=== PATIENT | female | born 1960 | race Caucasian/White ===

== ENCOUNTER 2023-10-14 09:05 | Outpatient (OUT) | payer MEDICARE, SELFPAY ==
--- OUTSIDE RECORDS SUMMARY | 2023-10-14 09:25 | XMS_ITS | CCD ---
Author Organization [facility] Care Team Providers Care Seed Laboratory Technician Name Role Phone KRISTA, DEEPAK Unavailable Unavailable KRISTA, DEEPAK Unavailable Unavailable STIERWALT, JACQUELINE Unavailable Unavailable KRISTA, DEEPAK Unavailable Unavailable KRISTA, DEEPAK Unavailable Unavailable KRISTA, DEEPAK Unavailable Unavailable STIERWALT, JACQUELINE Unavailable Unavailable STIERWALT, JACQUELINE Unavailable Unavailable SELF, REFERRED Unavailable Unavailable SELF, REFERRED Unavailable Unavailable KRISTA, DEEPAK Unavailable Unavailable KRISTA, DEEPAK Unavailable Unavailable Galdamez, Radha Unavailable ALBA, DR JUSTIN Colunga Admitting Unavailable NADERER, DR JUSTIN Colunga Attending Unavailable NADERER, DR JUSTIN Colunga Primary Care Unavailable NADERER, DR JUSTIN Colunga Consulting Unavailable NADERER, DR JUSTIN Colunga Admitting Unavailable NADERER, DR JUSTIN Colunga Attending Unavailable NADERER, DR JUSTIN Colunga Primary Care Unavailable NADERER, DR JUSTIN Colunga Consulting Unavailable NADERER, JUSTIN Attending Unavailable Allergies Allergy Classification Reported Allergen(s) Allergy Type Date of Onset Reaction(s) Facility (2 sources) codeine Drug Allergy 04-24-2016 [facility] Repository (2 sources) traMADol Drug Allergy 04-24-2016 [facility]OF [facility] Repository (1 source) Codeine Drug Allergy vomiting [facility] Other (1 source) traMADol Drug Allergy vomiting [facility] Other Medications Current Medications Medication Drug Class(es) Dates Sig (Normalized) Sig (Original) latanoprost (1 source) Prostaglandin Analog Latanoprost Active Problems Active Problems Problem Classification Problem Date Documented Date Episodic/Chronic Gout and other crystal arthropathies (1 source) Other chondrocalcinosis, left knee; Translations: [OTHER CHONDROCALCINOSIS, LEFT KNEE] Onset: 08-13-2016 Chronic Immunizations and screening for infectious disease (1 source) Encounter for screening for human papillomavirus (HPV); Translations: [ENC SCREENING HUMAN PAPILLOMAVIRUS] Onset: 12-05-2021 Episodic Osteoarthritis (1 source) Unilateral primary osteoarthritis, left knee; Translations: [UNILATERAL PRIMARY OSTEOARTHRITIS, LEFT KNEE] Onset: 04-03-2017 Chronic Other screening for suspected conditions (not mental disorders or infectious disease) (4 sources) Encounter for screening for malignant neoplasm of cervix; Translations: [ENC SCREENING MALIG NEOPLASM CERV] Onset: 12-03-2021 Episodic Unclassified (2 sources) Unknown / UNK(Unknown) Onset: 08-13-2016 Unclassified (1 source) Contact with and (suspected) exposure to covid-19; Translations: [Contact with and (suspected) exposure to covid-19] Past or Other Problems Problem Classification Problem Date Documented Da te Episodic/Chronic Fracture of lower limb (9 sources) Displaced fracture of left tibial spine, subsequent encounter for closed fracture with routine healing; Translations: [Displaced fracture of lateral condyle of left tibia, initial encounter for closed fracture] Onset: 08-13-2016 Episodic Other ear and sense organ disorders (1 source) Impacted cerumen, bilateral Onset: 10-18-2021 Resolved: 10-18-2021 Episodic Other upper respiratory infections (1 source) Acute upper respiratory infection, unspecified Onset: 10-18-2021 Resolved: 10-18-2021 Episodic Unclassified (1 source) Contact with and (suspected) exposure to covid-19 Z20.822 Onset: 10-18-2021 Resolved: 10-18-2021 Results Test Name Value Interpretation Reference Range Facility PAP ACOG PANEL 2: 30 to 65on 12-10-2021 . . [facility] Comment on above: Result Comment: Perf ormed at: WB Performed By: #### [id number] #### [facility] [address] [address] [address] Doc Mcgrath Age Gdln ACOG Testing 30-65 [facility] Comment on above: Performed By: #### [id number] #### [facility] [address] [address] [address] Doc Mcgrath DIAGNOSIS: Comment [facility] Comment on above: Result Comment: NEGA TIVE FOR INTRAEPITHELIAL LESION OR MALIGNANCY. CELLULAR CHANGES ASSOCIATED WITH ATROPHY ARE PRESENT. Performed at: WB Performed By: #### [id number] #### [facility] [address] [place] [address] Dr. Doc Mcgrath HPV Aptima Negative Normal Negative [facility] Comment on above: Result Comment: This nucleic acid amplification test detects fourteen high-risk HPV types (16,18,31,33,35,39,45,51,52,56,58,59,66,68) without differentiation. Performed at: =G Performed By: #### [id number] #### [facility] [address] [place] [address] Dr. Doc Mcgrath Methodology: Comment Normal [facility] Comment on above: Result Comment: This liquid based ThinPrep(R) pap test was screened with the use of an image guided system. Performed at: WB Performed By: #### [id number] #### [facility] [address] [place] [address] Dr. Doc Mcgrath Note: Comment Normal [facility] Comment on above: Result Comment: The Pap smear is a screening test designed to aid in the detection of premalignant and malignant conditions of the uterine cervix. It is not a diagnostic procedure and should not be used as the sole means of detecting cervical cancer. Both false-positive and false-negative reports do occur. . Performed at: WB Performed By: #### [id number] #### [facility] [address] [place] [address] Dr. Doc Mcgrath Performed by: Comment Normal [facility] Comment on above: Result Comment: Almita Albert, Wood Engraver (ASCP) Performed at: WB Performed By: #### [id number] #### [facility] [address] [place] [address] Dr. Doc Mcgrath Specimen adequacy: Comment Normal [facility] Comment on above: Result Comment: Sati sfactory for evaluation. Endocervical and/or squamous metaplastic cells (endocervical component) are present. Performed at: WB Performed By: #### [id number] #### [facility] [address] [place] [address] Dr. Doc Mcgrath CBC AUTO DIFFon 11-06-2021 BASO # 0.1 103/ul Normal 0.0-0.[address] [facility] Comment on above: Performed By: #### C BC #### [facility] [address] [place] [address] Dr. Doc Mcgrath Basophils/100 WBC (Bld) 1.0 % Normal 0.2-2.[address] [facility] Comment on above: Performed By: #### C BC #### [facility] [address] [place] [address] Dr. Doc Mcgrath EO # 0.2 103/ul Normal 0.0-0.[address] [facility] Comment on above: Performed By: #### C BC #### [facility] [address] [place] [address] Dr. Doc Mcgrath Eosinophils/100 WBC (Bld) 4.4 % Normal 0.9-7.[address] [facility] Comment on above: Performed By: #### C BC #### [facility] [address] [place] [address] Dr. Doc Mcgrath Erythrocyte distribution width (RBC) [Ratio] 13.1 % Normal 11.0-15.[address] [facility] Comment on above: Performed By: #### C BC #### [facility] [address] [place] [address] Dr. Doc Mcgrath Hematocrit (Bld) [Volume fraction] 44.5 % Normal 36.0-48.[address] [facility] Comment on above: Performed By: #### C BC #### [facility] [address] [place] [address] Dr. Doc Mcgrath Hemoglobin (Bld) [Mass/Vol] 14.3 g/dL Normal 12.0-16.[address] [facility] Comment on above: Performed By: #### C BC #### [facility] [address] [place] [address] Dr. Doc Mcgrath IG # 0.02 10e3/ul Normal 0.00-0.[address] [facility] Comment on above: Performed By: #### C BC #### [facility] [address] [place] [address] Dr. Doc Mcgrath IG % 0.4 % Normal 0.0-0.[address] [facility] Comment on above: Performed By: #### C BC #### [facility] [address] [place] [address] Dr. Doc Mcgrath LYMPH # 1.6 103/ul Normal 1.2-3.[address] [facility] Comment on above: Performed By: #### C BC #### [facility] [address] [place] [address] Dr. Doc Mcgrath Lymphocytes/100 WBC (Bld) 30.5 % Normal 20.5-60.[address] [facility] Comment on above: Performed By: #### C BC #### [facility] [address] [place] [address] Dr. Doc Mcgrath MANUAL DIFF REQ NO Normal [facility] Comment on above: Performed By: #### C BC #### [facility] [address] [place] [address] Dr. Doc Mcgrath MCH (RBC) [Entitic mass] 29.8 pg Normal 26.7-34.[address] [facility] Comment on above: Performed By: #### C BC #### [facility] [address] [place] [address] Dr. Doc Mcgrath MCHC (RBC) [Mass/Vol] 32.1 g/dL Normal 29.9-35.[address] [facility] Comment on above: Performed By: #### C BC #### [facility] [address] [place] [address] Dr. Doc Mcgrath MCV (RBC) [Entitic vol] 92.7 fL Normal 81.0-99.[address] [facility] Comment on above: Performed By: #### C BC #### [facility] [address] [place] [address] Dr. Doc Mcgrath MONO # 0.5 103/ul Normal 0.3-0.[address] [facility] Comment on above: Performed By: #### C BC #### [facility] [address] [place] [address] Dr. Doc Mcgrath Monocytes/100 WBC (Bld) 8.6 % Normal 1.7-12.[address] [facility] Comment on above: Performed By: #### C BC #### [facility] [address] [address] [address] Doc Mcgrath NEUT # 2.9 103/ul Normal 1.4-6.[address] [facility] Comment on above: Performed By: #### C BC #### [facility] [address] [address] [address] Doc Mcgrath Neutrophils/100 WBC (Bld) 55.1 % Normal 43.0-75.[address] [facility] Comment on above: Performed By: #### C BC #### [facility] [address] [place] [address] Dr. Doc Mcgrath Platelet mean volume (Bld) [Entitic vol] 10.1 fL Normal 9.5-13.[address] [facility] Comment on above: Performed By: #### C BC #### [facility] [address] [place] [address] Dr. Doc Mcgrath PLT 306 103/ul Normal 150-450 [facility] Comment on above: Performed By: #### C BC #### [facility] [address] [place] [address] Dr. Doc Mcgrath RBC 4.80 106/ul Normal 4.20-5.[address] [facility] Comment on above: Performed By: #### C BC #### [facility] [address] [place] [address] Dr. Doc Mcgrath WBC 5.3 103/ul Normal 4.0-11.[address] [facility] Comment on above: Performed By: #### C BC #### [facility] [address] [place] [address] Dr. Doc Mcgrath GLYCOHEMOGLOBIN A1Con 2021 ADA RECOMMENDATION SEE BELOW Normal [facility] Comment on above: Result Comment: ADA RECOMMENDED LIMIT 4.0 - 6.0 ADA THERAPEUTIC TARGET < 7.0 ACTION SUGGESTED > 7.0 Performed By: #### A 1C #### [facility] [address] [place] [address] Dr. Doc Mcgrath Glucose [Mass/Vol] 103 mg/dL Normal [facility] Comment on above: Performed By: #### A 1C #### [facility] [address] [address] [address] Doc Mcgrath HbA1c (Bld) [Mass fraction] 5.2 % Normal 4.5-6.[address] [facility] Comment on above: Performed By: #### A 1C #### [facility] [address] [address] [address] Doc Mcgrath LIPID PROFILEon 11-06-2021 CHOL-HDL RATIO NORM SEE BELOW Normal [facility] Comment on above: Result Comment: 3.3 - 4.4 LOW RISK 4.4 - 7.1 AVERAGE RISK 7.1 - 11.0 MODERATE RISK >11.0 HIGH RISK Performed By: #### T SH, BMP, LIPID, LIVER #### [facility] [address] [address] [address] Doc Mcgrath Cholesterol [Mass/Vol] 220 mg/dL Critically high <=[address] [facility] Comment on above: Performed By: #### T SH, BMP, LIPID, LIVER #### [facility] [address] [address] [address] Doc Mcgrath Cholesterol in HDL [Mass/Vol] 42 mg/dL Normal 40-[address] [facility] Comment on above: Performed By: #### T SH, BMP, LIPID, LIVER #### [facility] [address] [address] [address] Doc Mcgrath Cholesterol in LDL [Mass/Vol] 159.2 mg/dL Normal [facility] Comment on above: Performed By: #### T SH, BMP, LIPID, LIVER #### [facility] [address] [address] [address] Doc Mcgrath Cholesterol.total/C holesterol in HDL [Mass ratio] 5.2 {ratio} Normal [facility] Comment on above: Performed By: #### T SH, BMP, LIPID, LIVER #### [facility] [address] [address] [address] Doc Mcgrath HDL NORMAL > or = 60 mg/dl - LO W CARDIOVASCULAR RISK <40 mg/dl - HIGH CARDIOVASCULAR RISK Normal [facility] Comment on above: Performed By: #### T SH, BMP, LIPID, LIVER #### [facility] [address] [address] [address] Doc Mcgrath LDL CALC NORMAL SEE BELOW Normal [facility] Comment on above: Result Comment: <100 mg/dl OPTIMAL 100 - 129 mg/dl NEAR OR ABOVE OPTIMAL 130 - 159 mg/dl BORDERLINE HIGH 160 - 189 mg/dl HIGH >190 mg/dl VERY HIGH Performed By: #### T SH, BMP, LIPID, LIVER #### [facility] [address] [address] [address] Doc Mcgrath Triglyceride [Mass/Vol] 94 mg/dL Normal <=[address] [facility] Comment on above: Performed By: #### T SH, BMP, LIPID, LIVER #### [facility] [address] [place] [address] Dr. Doc Mcgrath VLDL CALC 18.8 mg/dL Normal [facility] Comment on above: Performed By: #### T SH, BMP, LIPID, LIVER #### [facility] [address] [place] [address] Dr. Doc Mcgrath LIVER PROFILEon 11-06-2021 Albumin [Mass/Vol] 4.1 g/dL Normal 3.4-5.0 [facility] Comment on above: Performed By: #### T SH, BMP, LIPID, LIVER #### [facility] [address] [place] [address] Dr. Doc Mcgrath Albumin/Globulin [Mass ratio] 1.1 {ratio} Normal [facility] Comment on above: Performed By: #### T SH, BMP, LIPID, LIVER #### [facility] [address] [place] [address] Dr. Doc Mcgrath ALP [Catalytic activity/Vol] 83 U/L Normal 46-116 [facility] Comment on above: Performed By: #### T SH, BMP, LIPID, LIVER #### [facility] [address] [place] [address] Dr. Doc Mcgrath ALT [Catalytic activity/Vol] 20 U/L Normal 14-[address] [facility] Comment on above: Performed By: #### T SH, BMP, LIPID, LIVER #### [facility] [address] [address] [address] Doc Mcgrath AST [Catalytic activity/Vol] 20 U/L Normal 15-[address] [facility] Comment on above: Performed By: #### T SH, BMP, LIPID, LIVER #### [facility] [address] [place] [address] Dr. Doc Mcgrath BILI, CONJUGATED 0.2 mg/dL Normal 0.0-0.2 [facility] [place] Comment on above: Performed By: #### T SH, BMP, LIPID, LIVER #### [facility] [address] [place] [address] Dr. Doc Mcgrath Bilirubin [Mass/Vol] 1.0 mg/dL Normal 0.2-1.[address] [facility] Comment on above: Performed By: #### T SH, BMP, LIPID, LIVER #### [facility] [address] [place] [address] Dr. Doc Mcgrath Globulin (S) [Mass/Vol] 3.8 g/dL Normal [facility] Comment on above: Performed By: #### T SH, BMP, LIPID, LIVER #### [facility] [address] [place] [address] Dr. Doc Mcgrath Protein [Mass/Vol] 7.9 g/dL Normal 6.4-8.2 [facility] Comment on above: Performed By: #### T SH, BMP, LIPID, LIVER #### [facility] [address] [place] [address] Dr. Doc Mcgrath PROF CHEM 8 (BAS METB)on Anion gap [Moles/Vol] 10.7 mmol/L Normal [facility] Comment on above: Performed By: #### T SH, BMP, LIPID, LIVER #### [facility] [address] [place] [address] Dr. Doc Mcgrath Calcium [Mass/Vol] 9.7 mg/dL Normal 8.5-10.1 [facility] Comment on above: Performed By: #### T SH, BMP, LIPID, LIVER #### [facility] [address] [place] [address] Dr. Doc Mcgrath Chloride [Moles/Vol] 103 mmol/L Normal 98-107 [facility] Comment on above: Performed By: #### T SH, BMP, LIPID, LIVER #### [facility] [address] [address] [address] Doc Mcgrath CO2 [Moles/Vol] 30.8 mmol/L Normal 21.0-32.0 [facility] Comment on above: Performed By: #### T SH, BMP, LIPID, LIVER #### [facility] [address] [address] [address] Doc Mcgrath Creatinine [Mass/Vol] 0.68 mg/dL Normal 0.55-1.[address] [facility] Comment on above: Performed By: #### T SH, BMP, LIPID, LIVER #### [facility] [address] [address] [address] Doc Mcgrath EGFR-AF TAIWANESE >60 Normal >=60 [facility] Comment on above: Performed By: #### T SH, BMP, LIPID, LIVER #### [facility] [address] [address] [address] Doc Mcgrath EGFR-NON AF TAIWANESE >60 Normal >=[address] [facility] Comment on above: Performed By: #### T SH, BMP, LIPID, LIVER #### [facility] [address] [address] [address] Doc Mcgrath Glucose [Mass/Vol] 91 mg/dL Normal 74-106 [facility] Comment on above: Performed By: #### T SH, BMP, LIPID, LIVER #### [facility] [address] [address] [address] Doc Mcgrath Potassium [Moles/Vol] 4.5 mmol/L Normal 3.5-5.1 [facility] Comment on above: Performed By: #### T SH, BMP, LIPID, LIVER #### [facility] [address] [address] [address] Doc Mcgrath Sodium [Moles/Vol] 140 mmol/L Normal 136-145 [facility] Comment on above: Performed By: #### T SH, BMP, LIPID, LIVER #### [facility] [address] [place], [place] [address] Dr. Doc Mcgrath Urea nitrogen [Mass/Vol] 19.0 mg/dL Critically high 7.0-18.[address] [facility] Comment on above: Performed By: #### T SH, BMP, LIPID, LIVER #### [facility] [address] [place], [place] [address] Dr. Doc Mcgrath Urea nitrogen/Creatinine [Mass ratio] 27.9 mg/mg Normal [facility] Comment on above: Performed By: #### T SH, BMP, LIPID, LIVER #### [facility] [address] [place], [place] [address] Dr. Doc Mcgrath TSHon 11-06-2021 TSH 2.076 uIU/mL Normal 0.358-3.740 [facility] Comment on above: Performed By: #### T SH, BMP, LIPID, LIVER #### [facility] [address] [address] [address] Doc Mcgrath SARS-CoV-2 (COVID-19) RNA NA A+probe Ql (Resp)on 10-18-2021 SARS-CoV-2 (COVID-19) RNA DON+probe Ql (Unsp spec) Negative [facility] Other KNEE LEFT 1 OR 2 VWSon 04-03 KNEE [facility] 1 [facility] [address] [place] [id number] ========Patient Name: RAMA SALDANA : 1960Sex: FAge: Race: WhiteMRN: [id number]. Location: 84Patient Status: Date: 04/03/2017 9:40:00 AMCompleted Date: 04/03/2017 09:43 AMRequesting Provider: DEEPAK VELASCO Attending Provider: Report Copy To: Signs & Symptoms: S82.112D Disp fx of left tibial spine, subs for clos fx w routn heal [id number]: AthenaComments: , , , Ordering Provider - DEEPAK VELASCO PA-C , Exam: KNEE LEFT 1 OR 2 VWSAccession #: [id number] KNEE LEFT 1 OR 2 VWS 04/03/2017 9:43 AM EST SIGNS AND SYMPTOMS: S82.112D Disp fx of left tibial spine, subs for clos fx w routn heal I10 TECHNOLOGIST COMMENTS: Patient states post fall x 04/2016 ortho follow up of left knee QUESTION FOR THE RADIOLOGIST: , , , Ordering Provider - DEEPAK VELASCO PA-C , PROTOCOL: AP(PA) and Lateral views were obtained. COMPARISON: September 25, 2016 FINDINGS: Soft tissues:Unchanged Bones:Healing lateral tibial plateau fracture, unchanged Joints:Small effusion with mild arthritic change IMPRESSION: Healing lateral plateau fracture with minor residual deformity and with mild knee arthritis, as before Electronically signed by:Jose E Leung. Transcribed by: [email or web address], User Resident: Electronically Signed by: JOSE E LEUNG @ 04/03/2017 12:13 PM Normal [facility] Comment on above: Order Comment: , , = ========= , Ordering Provider - DEEPAK VELASCO PA-C , KNEE LEFT 1 OR 2 [facility] 09-25 KNEE LEFT 1 OR 2 [facility] [address] [place] [address] ========Patient Name: RAMA SALDANA : 1960Sex: FAge: Race: WhiteMRN: [id number]. Location: 84Patient Status: Date: 09/25/2016 1:30:00 PMCompleted Date: 09/25/2016 01:37 PMRequesting Provider: DEEPAK VELASCO Attending Provider: Report Copy To: Signs & Symptoms: S82.112D Disp fx of left tibial spine, subs for clos fx w routn heal [id number]: AthenaComments: , , , Ordering Provider - DEEPAK VELASCO PA-C , Exam: KNEE LEFT 1 OR 2 VWSAccession #: [id number] KNEE LEFT 1 OR 2 VWS 09/25/2016 1:37 PM EDT SIGNS AND SYMPTOMS: S82.112D Disp fx of left tibial spine, subs for clos fx w routn heal I10 TECHNOLOGIST COMMENTS: left distal knee pain surgery f/u QUESTION FOR THE RADIOLOGIST: , , , Ordering Provider - DEEPAK VELASCO PA-C , PROTOCOL: AP(PA) and Lateral views were obtained. COMPARISON: None FINDINGS: Soft tissues:Normal Bones:Status post lateral plate and screw fixation of tibial plateau fracture. Alignment and hardware unchanged. Healing appears to be near complete. Joints:Degenerative changes with some narrowing of the medial joint space compartment and the left knee IMPRESSION: 1. Status post lateral plate and screw fixation of tibial plateau fracture. Alignment and hardware unchanged. Healing appears to be near complete. Electronically signed by:Trace Griffin. Transcribed by: [email or web address], User Resident: Electronically Signed by: TRACE GRIFFIN @ 09/25/2016 04:21 PM Normal [facility] Comment on above: Order Comment: , , = ========= , Ordering Provider - DEEPAK VELASCO PA-C , KNEE LEFT 1 OR 2 VWSon 08-13 KNEE LEFT 1 OR 2 [facility] [address] [place] [id number] ========Patient Name: RAMA SALDANA : 1960Sex: FAge: Race: WhiteMRN: [id number]. Location: 84Patient Status: Date: 08/13/2016 1:35:00 PMCompleted Date: 08/13/2016 01:37 PMRequesting Provider: DEEPAK VELASCO Attending Provider: Report Copy To: Signs & Symptoms: S82.112D Disp fx of left tibial spine, subs for clos fx w routn heal [id number]: AthenaComments: , , , Ordering Provider - DEEPAK VELASCO PA-C , Exam: KNEE LEFT 1 OR 2 VWSAccession #: [id number] KNEE LEFT 1 OR 2 VWS 08/13/2016 1:37 PM EDT SIGNS AND SYMPTOMS: S82.112D Disp fx of left tibial spine, subs for clos fx w routn heal I10 TECHNOLOGIST COMMENTS: Patient states tibial plateau fracture on April 23 2016 Surgery on April 25 2016 QUESTION FOR THE RADIOLOGIST: , , , Ordering Provider - DEEPAK VELASCO PA-C , PROTOCOL: AP(PA) and Lateral views were obtained. COMPARISON: X-ray of the left knee July 02, 2016. FINDINGS: Soft tissues:No significant soft tissue swelling. Bones:There is lateral side plate and screw fixation of lateral tibial plateau in unchanged alignment.Healing fibular head fracture. Joints:Satisfactory alignment of the left knee with mild joint space narrowing in the medial and lateral weightbearing compartments.Chondroca lcinosis of the left knee joint.Small joint effusion. IMPRESSION: 1. Lateral side plate and screw fixation of lateral tibial plateau fracture in unchanged alignment.2. Healing fibular head fracture.3. Chondrocalcinosis at the left knee joint. Approved by:Bryant Grewal on 08/13/2016 3:51 PM EDT. I, Janis Singh, have reviewed the images and report and concur with these findings. Electronically signed by:Janis Singh. Transcribed by: [email or web address], User Resident: BRYANT GREWALElectronically Signed by: JANIS SINGH @ 08/13/2016 06:32 PMI personally read this/these film(s) with this resident Normal [facility] Comment on above: Order Comment: , , = ========= , Ordering Provider - DEEPAK VELASCO PA-C , Vital Signs Date Time Vital Sign Value Performing Clinician Facility 10-18-2021 11:05-0400 Body height 160.02 cm Radha Galdamez Other [facility] Other 10-18-2021 11:05-0400 Body mass index (BMI) [Ratio] 26.21 kg/m2 Jott Other [facility] Other 10-18-2021 11:05-0400 Body temperature 97.3 [degF] Radha Galdamez Other [facility] Other 10-18-2021 11:05-0400 Body weight 67.13 kg Radha Galdamez Other [facility] Other 10-18-2021 11:05-0400 Respiratory rate 18 /min Radha Galdamez Other [facility] Other 10-18-2021 11:05-0400 SaO2% (BldA) [Mass fraction] 98 % Radha Galdamez Other [facility] Other Encounters Encounter Date Encounter Type Care Provider Facility Start: 10-08-2023 End: 10-08-2023 ambulatory JUSTIN WILLIS Not Available Start: 12-03-2021 End: 12-03-[address] JUSTIN WILLIS Facility:[facility] Start: 11-07-2021 Encounter for genera l adult medical examination without abnormal findings DR JUSTIN WILLIS [facility] Start: 11-06-2021 End: 11-07-[address] JUSTIN WILLIS Facility:[facility] Start: 11-06-2021 End: 11-07-2021 Encounter for general adult medical examination without abnormal findings DR JUSTIN WILLIS Facility:[facility] Start: 10-18-2021 End: 10-18-2021 ambulatory Radha Galdamez Other [facility] Other Start: 10-18-2021 Office outpatient vi sit 25 minutes Radha Galdamez [facility] Start: 04-03-2017 End: 04-04-2017 Ambulatory REFERRED SELF Facility:[facility] Start: 09-25-2016 End: 09-26-2016 Ambulatory DEEPAK VELASCO Facility:[facility] Start: 08-13-2016 End: 08-14-2016 Ambulatory DEEPAK VELASCO Facility:[facility] Payers Date Payer Category Payer Unknown [id number] 2023 Medicare [id number] 1961 Unknown [id number] 1960 Unknown [id number] 1960 Unknown [id number] 1960 Unknown [id number] Worker's Compensation [id number] Social History Date Type Detail Facility Sex Assigned At [facility] Other Evaluation note 10-18-2021 Note Date & Type Note Facility 10-18-2021 Evaluation note Encounter Date Diagnosis Assessment Notes Oct, Contact with and (suspected) exposure to covid-19 (ICD-10 - Z20.822) Oct, Bilateral impacted cerumen (ICD-10 - H61.23) Ear lavage performed in clinic--see procedural note, pt tolerated well. reviewed proper ear care, avoid QTips, recommended otc debrox for maintance care and prevention of cerumen impaction in the future. immediate eval if warning s/s, including ear pain with/without drainage or hearing loss. pt does seem to still have some residual infection in R ear, pt should continue with ATB and steroid rx until completed. she should d/c debrox at this time. follow up with PCP if hearing loss is still not resolved after this. Oct, Viral URI (ICD-10 - J06.9) testing is negative today in clinic. low suspicion for bacterial infection at this time. continue symptomatic tx c otc meds prn. recommended hot steam baths and/or cool mist humidifier. push rest/fluids. reinforced universal infection control protocols and good hand hygiene for infection control. pt education and anticipatory guidance provided on viral vs bacterial infection progression. immediate eval if warning s/s of intractable fevers, respir distress or other emergent symptoms. otherwise f/u with PCP if febrile or new/worsening s/s. [facility] Other History general Narrative - Reported Note Date & Type Note Facility History general Narrative - Reported Type Medical History glaucoma [facility] Other Summary Purpose Family History No Family History Records FoundNo Family History Records FoundNo Family History Records Found Advance Directives No Advanced Directives Records FoundNo Advanced Directives Records FoundNo Advanced Directives Records Found Additional Source Comments INFORMATION SOURCE (unrecogn ized section and content) DATE CREATED AUTHOR 08/06/2017 [facility] DATE CREATED AUTHOR AUTHOR'S ORGANIZ ATION [facility] DATE CREATED AUTHOR AUTHOR'S ORGANIZ ATION 10/10/2023 [facility] EPIC REASON FOR VISIT (unrecogniz ed section and content) SILVER ESCAPE, SINUS CONGEST ION, SORE THRAOT, EARS PLUGGED, PUT ON ANTIBIOTIC AT [facility], BUT NEVER TESTED OR CLEANED EARS FOR RECORDS PERTAINING TO PATIENTS WHO ARE OR HAVE BEEN ENROLLED IN A CHEMICAL DEPENDENCY/SUBSTANCEABUSE PROGRAM, SOME INFORMATION MAY BE OMITTED. This clinical summary was aggregated from multiple sources. Caution should be exercised in using it in the provision of clinical care. This summary normalizes information from multiple sources, and as a consequence, information in this document may materially change the coding, format and clinical context of patient data. In addition, data may be omitted in some cases. CLINICAL DECISIONS SHOULD BE BASED ON THE PRIMARY CLINICAL RECORDS. [email or web address] provides no warranty or guarantee of the accuracy or completeness of information in this document.
[2023-10-14 09:29] LABS: Basophils Absolute Auto 0.1 10^3/uL (0.0-0.1); Basophils Percent Auto 1.1 % (0.2-2.0); Eosinophils Absolute Auto 0.3 10^3/uL (0.0-0.7); Hematocrit 43.3 % (36.0-48.0); Hemoglobin 14.4 g/dL (12.0-16.0); Immature Granulocytes Abs Auto 0.01 10^3/uL (0.00-0.03); Immature Granulocytes Pct Auto 0.2 % (0.0-0.5); Lymphocytes Absolute Auto 1.8 10^3/uL (1.2-3.8); Lymphocytes Percent Auto 31.6 % (20.5-60.0); Mean Corpuscular HGB Conc 33.3 g/dL (29.9-35.2); Mean Corpuscular Hemoglobin 30.6 pg (26.7-34.0); Mean Corpuscular Volume 91.9 fL (81.0-99.0); Mean Platelet Volume 9.8 fL (9.5-13.5); Monocytes Absolute Auto 0.5 10^3/uL (0.3-0.8); Monocytes Percent Auto 8.2 % (1.7-12.0); Neutrophils Percent Auto 52.9 % (43.0-75.0); Platelet Count 264 10^3/uL (150-450); Red Blood Count 4.71 10^6/uL (4.20-5.40); Red Cell Distribution Width 13.2 % (11.0-15.0); White Blood Count 5.6 10^3/uL (4.0-11.0)
[2023-10-14 10:44] LABS: Alanine Aminotransferase 23 U/L (14-59); Albumin Globulin Ratio 1.2; Alkaline Phosphatase 75 U/L (46-116); Anion Gap 11.6; Aspartate Amino Transferase 20 U/L (15-37); BUN Creatinine Ratio 32.3; Bilirubin Direct 0.2 mg/dL (0.0-0.2); Bilirubin Total 1.4 mg/dL (0.2-1.0); Calcium 9.4 mg/dL (8.5-10.1); Carbon Dioxide 30.7 mmol/L (21.0-32.0); Chloride 103 mmol/L (98-107); Chol HDL Ratio 4.5; Cholesterol 205 mg/dL (<=200); Estimated GFR (African America >60 (>=60); Estimated GFR (Non-African Ame >60 (>=60); Globulin 3.3 g/dL; Glucose 84 mg/dL (74-106); HDL Cholesterol 46 mg/dL (40-60); Potassium 4.3 mmol/L (3.5-5.1); Sodium 141 mmol/L (136-145); Total Protein 7.3 g/dL (6.4-8.2); Triglycerides 87 mg/dL (<=150); VLDL CHOLESTEROL 17.4 mg/dL
== END 2023-10-14 09:06 | disposition home or self-care (01) ==
LOC: LAB 09:07
PROVIDERS: PCP Family Medicine; Visit Provider Family Medicine
DX: Z79.899 Other long term (current) drug therapy (principal); Z13.220 Encounter for screening for lipoid disorders
CPT/HCPCS: 36415; 80048; 80061; 80076; 85025

== ENCOUNTER 2023-10-14 09:19 | Outpatient (OUT) | payer MEDICARE, SELFPAY ==
--- NOTE | 2023-10-14 09:21 | MM_ITS ---
Patient Name: RAMA SALDANA MR#: [id number] : 1960 Exam Date: 10/14/2023 Ordering Doctor: DR Davonte Wiklinson . RADIOLOGY REPORT PROCEDURE: MM TOMOSYNTHESIS SCREENING BI COMPARISON: MG MAMM SCREEN 3D SOPHIA CAD, 12/10/2020. MG MAMM SOPHIA SCRN W CAD DIG, 10/10/2016. INDICATIONS: Screening Calculator Name NCI Breast Cancer Risk Assessment Tool 5 Year Breast Cancer Risk 1.80% Lifetime Breast Cancer Risk 6.90% Personal Breast Cancer No Personal Ovarian Cancer No Treatments None Family Cancers Mother with ovarian cancer at age ~52; Father with lung cancer at age ~55. LOCATION: [facility] BREAST COMPOSITION: There are scattered areas of fibroglandular density. FINDINGS: DIAGNOSTIC CATEGORY 2--BENIGN FINDING. NO CHANGE FROM COMPARISON. Scattered benign-appearing calcifications are present. Scattered benign-appearing lymph nodes are present. RIGHT BREAST: No significant suspicious finding. LEFT BREAST: No significant suspicious finding. RECOMMENDATIONS: ROUTINE MAMMOGRAM AND CLINICAL EVALUATION IN 12 MONTHS. PLEASE NOTE: A NORMAL MAMMOGRAM DOES NOT EXCLUDE THE POSSIBILITY OF BREAST CANCER. A CLINICALLY SUSPICIOUS PALPABLE LUMP SHOULD BE BIOPSIED. Dictated by: Tex Albert MD on 10/14/2023 at 12:36 Approved by: Tex Albert MD on 10/14/2023 at 12:37
--- OUTSIDE RECORDS SUMMARY | 2023-10-14 09:30 | XMS_ITS | CCD ---
Author Organization [facility] Care Team Providers Care Button Maker Name Role Phone KRISTA, DEEPAK Unavailable Unavailable [...] sources) codeine Drug Allergy 04-24-2016 [facility] Repository (2 sources) traMADol Drug Allergy 04-24-2016 [facility]OF [facility] Repository (1 source) Codeine Drug Allergy vomiting [facility] Other (1 source) traMADol Drug Allergy vomiting [facility] Other Medications Current Medications Medication Drug Class(es) [...] 2: 30 to 63on 12-10-2021 . . [facility] Comment on above: Result Comment: Perf ormed at: WB Performed By: #### [id number] #### [facility] [address] [address] [address] Doc Mcgrath Age Gdln ACOG Testing 30-65 [facility] Comment on above: Performed By: #### [id number] #### [facility] [address] [address] [address] Doc Mcgrath DIAGNOSIS: Comment [facility] Comment on above: Result Comment: NEGA TIVE FOR INTRAEPITHELIAL LESION OR MALIGNANCY. CELLULAR CHANGES ASSOCIATED WITH ATROPHY ARE PRESENT. Performed at: WB Performed By: #### [id number] #### [facility] [address] [place] [address] Dr. Doc Mcgrath HPV Aptima Negative Normal Negative [facility] Comment on above: Result Comment: This nucleic acid amplification test detects fourteen high-risk HPV types (16,18,31,33,35,39,45,51,52,56,58,59,66,68) without differentiation. Performed at: =G Performed By: #### [id number] #### [facility] [address] [place] [address] Dr. Doc Mcgrath Methodology: Comment Normal [facility] Comment on above: Result Comment: This liquid based ThinPrep(R) pap test was screened with the use of an image guided system. Performed at: WB Performed By: #### [id number] #### [facility] [address] [place] [address] Dr. Doc Mcgrath Note: Comment Normal [facility] Comment on above: Result Comment: The Pap smear is a screening test designed to aid in the detection of premalignant and malignant conditions of the uterine cervix. It is not a diagnostic procedure and should not be used as the sole means of detecting cervical cancer. Both false-positive and false-negative reports do occur. . Performed at: WB Performed By: #### [id number] #### [facility] [address] [place] [address] Dr. Doc Mcgrath Performed by: Comment Normal [facility] Comment on above: Result Comment: Almita Albert, Clinical Athletic Instructor (ASCP) Performed at: WB Performed By: #### [id number] #### [facility] [address] [place] [address] Dr. Doc Mcgrath Specimen adequacy: Comment Normal [facility] Comment on above: Result Comment: Sati sfactory for evaluation. Endocervical and/or squamous metaplastic cells (endocervical component) are present. Performed at: WB Performed By: #### 4 [id number] #### [facility] [address] [place] [address] Dr. Doc Mcgrath CBC AUTO DIFFon 11-06-2021 BASO # 0.1 103/ul Normal 0.0-0.1 [facility] Comment on above: Performed By: #### C BC #### [facility] [address] [place] [address] Dr. Doc Mcgrath Basophils/100 WBC (Bld) 1.0 % Normal 0.2-2.0 [facility] Comment on above: Performed By: #### C BC #### [facility] [address] [place] [address] Dr. Doc Mcgrath EO # 0.2 103/ul Normal 0.0-0.7 [facility] Comment on above: Performed By: #### C BC #### [facility] [address] [place] [address] Dr. Doc Mcgrath Eosinophils/100 WBC (Bld) 4.4 % Normal 0.9-7.0 [facility] Comment on above: Performed By: #### C BC #### [facility] [address] [place] [address] Dr. Doc Mcgrath Erythrocyte distribution width (RBC) [Ratio] 13.1 % Normal 11.0-15.0 [facility] Comment on above: Performed By: #### C BC #### [facility] [address] [place] [address] Dr. Doc Mcgrath Hematocrit (Bld) [Volume fraction] 44.5 % Normal 36.0-48.0 [facility] Comment on above: Performed By: #### C BC #### [facility] [address] [place] [address] Dr. Doc Mcgrath Hemoglobin (Bld) [Mass/Vol] 14.3 g/dL Normal 12.0-16.0 [facility] Comment on above: Performed By: #### C BC #### [facility] [address] [place] [address] Dr. Doc Mcgrath IG # 0.02 10e3/ul Normal 0.00-0.03 [facility] Comment on above: Performed By: #### C BC #### [facility] [address] [place] [address] Dr. Doc Mcgrath IG % 0.4 % Normal 0.0-0.5 [facility] Comment on above: Performed By: #### C BC #### [facility] [address] [place] [address] Dr. Doc Mcgrath LYMPH # 1.6 103/ul Normal 1.2-3.8 [facility] Comment on above: Performed By: #### C BC #### [facility] [address] [place] [address] Dr. Doc Mcgrath Lymphocytes/100 WBC (Bld) 30.5 % Normal 20.5-60.0 [facility] Comment on above: Performed By: #### C BC #### [facility] [address] [place] [address] Dr. Doc Mcgrath MANUAL DIFF REQ NO Normal [facility] Comment on above: Performed By: #### C BC #### [facility] [address] [place] [address] Dr. Doc Mcgrath MCH (RBC) [Entitic mass] 29.8 pg Normal 26.7-34.0 [facility] Comment on above: Performed By: #### C BC #### [facility] [address] [place] [address] Dr. Doc Mcgrath MCHC (RBC) [Mass/Vol] 32.1 g/dL Normal 29.9-35.2 [facility] Comment on above: Performed By: #### C BC #### [facility] [address] [place] [address] Dr. Doc Mcgrath MCV (RBC) [Entitic vol] 92.7 fL Normal 81.0-99.0 [facility] Comment on above: Performed By: #### C BC #### [facility] [address] [place] [address] Dr. Doc Mcgrath MONO # 0.5 103/ul Normal 0.3-0.8 [facility] Comment on above: Performed By: #### C BC #### [facility] [address] [place] [address] Dr. Doc Mcgrath Monocytes/100 WBC (Bld) 8.6 % Normal 1.7-12.0 [facility] Comment on above: Performed By: #### C BC #### [facility] [address] [address] [address] Doc Mcgrath NEUT # 2.9 103/ul Normal 1.4-6.5 [facility] Comment on above: Performed By: #### C BC #### [facility] [address] [address] [address] Doc Mcgrath Neutrophils/100 WBC (Bld) 55.1 % Normal 43.0-75.0 [facility] Comment on above: Performed By: #### C BC #### [facility] [address] [place] [address] Dr. Doc Mcgrath Platelet mean volume (Bld) [Entitic vol] 10.1 fL Normal 9.5-13.5 [facility] Comment on above: Performed By: #### C BC #### [facility] [address] [place] [address] Dr. Doc Mcgrath PLT 306 103/ul Normal 150-450 [facility] Comment on above: Performed By: #### C BC #### [facility] [address] [place] [address] Dr. Doc Mcgrath RBC 4.80 106/ul Normal 4.20-5.40 [facility] Comment on above: Performed By: #### C BC #### [facility] [address] [place] [address] Dr. Doc Mcgrath WBC 5.3 103/ul Normal 4.0-11.0 [facility] Comment on above: Performed By: #### C BC #### [facility] [address] [place] [address] Dr. Doc Mcgrath GLYCOHEMOGLOBIN A1Con 2021 ADA RECOMMENDATION SEE BELOW Normal [facility] Comment on above: Result Comment: ADA RECOMMENDED LIMIT 4.0 - 6.0 ADA THERAPEUTIC TARGET < 7.0 ACTION SUGGESTED > 7.0 Performed By: #### A 1C #### [facility] [address] [place] [address] Dr. Doc Mcgrath Glucose [Mass/Vol] 103 mg/dL Normal [facility] Comment on above: Performed By: #### A 1C #### [facility] [address] [address] [address] Doc Mcgrath HbA1c (Bld) [Mass fraction] 5.2 % Normal 4.5-6.2 [facility] Comment on above: Performed By: #### A 1C #### [facility] [address] [address] [address] Doc Mcgrath LIPID PROFILEon 11-06-2021 CHOL-HDL RATIO NORM SEE BELOW Normal [facility] Comment on above: Result Comment: 3.3 - 4.4 LOW RISK 4.4 - 7.1 AVERAGE RISK 7.1 - 11.0 MODERATE RISK >11.0 HIGH RISK Performed By: #### T SH, BMP, LIPID, LIVER #### [facility] [address] [address] [address] Doc Mcgrath Cholesterol [Mass/Vol] 220 mg/dL Critically high <=200 [facility] Comment on above: Performed By: #### T SH, BMP, LIPID, LIVER #### [facility] [address] [address] [address] Doc Mcgrath Cholesterol in HDL [Mass/Vol] 42 mg/dL Normal 40-60 [facility] Comment on above: Performed By: #### T SH, BMP, LIPID, LIVER #### [facility] [address] [address] [address] Doc Mcgrath Cholesterol in LDL [Mass/Vol] 159.2 mg/dL Normal [facility] Comment on above: Performed By: #### T SH, BMP, LIPID, LIVER #### [facility] [address] [address] [address] Doc Mcgrath Cholesterol.total/C holesterol in HDL [Mass ratio] 5.2 {ratio} Normal [facility] Comment on above: Performed By: #### T SH, BMP, LIPID, LIVER #### [facility] [address] [address] [address] Doc Mcgrath HDL NORMAL > or = 60 mg/dl - LO W CARDIOVASCULAR RISK <40 mg/dl - HIGH CARDIOVASCULAR RISK Normal [facility] Comment on above: Performed By: #### T SH, BMP, LIPID, LIVER #### [facility] [address] [address] [address] Doc Mcgrath LDL CALC NORMAL SEE BELOW Normal [facility] Comment on above: Result Comment: <100 mg/dl OPTIMAL 100 - 129 mg/dl NEAR OR ABOVE OPTIMAL 130 - 159 mg/dl BORDERLINE HIGH 160 - 189 mg/dl HIGH >190 mg/dl VERY HIGH Performed By: #### T SH, BMP, LIPID, LIVER #### [facility] [address] [address] [address] Doc Mcgrath Triglyceride [Mass/Vol] 94 mg/dL Normal <=150 [facility] Comment on above: Performed By: #### T SH, BMP, LIPID, LIVER #### [facility] [address] [place] [address] Dr. Doc Mcgrath VLDL CALC 18.8 mg/dL Normal [facility] Comment on above: Performed By: #### T SH, BMP, LIPID, LIVER #### [facility] [address] [place] [address] Dr. Doc Mcgrath LIVER PROFILEon 11-06-2021 Albumin [Mass/Vol] 4.1 g/dL Normal 3.4-5.0 [facility] Comment on above: Performed By: #### T SH, BMP, LIPID, LIVER #### [facility] [address] [place] [address] Dr. Doc Mcgrath Albumin/Globulin [Mass ratio] 1.1 {ratio} Normal [facility] Comment on above: Performed By: #### T SH, BMP, LIPID, LIVER #### [facility] [address] [place] [address] Dr. Doc Mcgrath ALP [Catalytic activity/Vol] 83 U/L Normal 46-116 [facility] Comment on above: Performed By: #### T SH, BMP, LIPID, LIVER #### [facility] [address] [place] [address] Dr. Doc Mcgrath ALT [Catalytic activity/Vol] 20 U/L Normal 14-59 [facility] Comment on above: Performed By: #### T SH, BMP, LIPID, LIVER #### [facility] [address] [address] [address] Doc Mcgrath AST [Catalytic activity/Vol] 20 U/L Normal 15-37 [facility] Comment on above: Performed By: #### T SH, BMP, LIPID, LIVER #### [facility] [address] [place] [address] Dr. Doc Mcgrath BILI, CONJUGATED 0.2 mg/dL Normal 0.0-0.2 [facility] Comment on above: Performed By: #### T SH, BMP, LIPID, LIVER #### [facility] [address] [place] [address] Dr. Doc Mcgrath Bilirubin [Mass/Vol] 1.0 mg/dL Normal 0.2-1.0 [facility] Comment on above: Performed By: #### T SH, BMP, LIPID, LIVER #### [facility] [address] [place] [address] Dr. Doc Mcgrath Globulin (S) [Mass/Vol] 3.8 g/dL Normal [facility] Comment on above: Performed By: #### T SH, BMP, LIPID, LIVER #### [facility] [address] [place] [address] Dr. Doc Mcgrath Protein [Mass/Vol] 7.9 g/dL Normal 6.4-8.2 [facility] Comment on above: Performed By: #### T SH, BMP, LIPID, LIVER #### [facility] [address] [place] [address] Dr. Doc Mcgrath PROF CHEM 8 (BAS METB)on Anion gap [Moles/Vol] 10.7 mmol/L Normal [facility] Comment on above: Performed By: #### T SH, BMP, LIPID, LIVER #### [facility] [address] [place] [address] Dr. Doc Mcgrath Calcium [Mass/Vol] 9.7 mg/dL Normal 8.5-10.1 [facility] Comment on above: Performed By: #### T SH, BMP, LIPID, LIVER #### [facility] [address] [place] [address] Dr. Doc Mcgrath Chloride [Moles/Vol] 103 mmol/L Normal 98-107 [facility] Comment on above: Performed By: #### T SH, BMP, LIPID, LIVER #### [facility] [address] [address] [address] Doc Mcgrath CO2 [Moles/Vol] 30.8 mmol/L Normal 21.0-32.0 [facility] [place] [facility] Comment on above: Performed By: #### T SH, BMP, LIPID, LIVER #### [facility] [address] [address] [address] Doc Mcgrath Creatinine [Mass/Vol] 0.68 mg/dL Normal 0.55-1.02 [facility] Comment on above: Performed By: #### T SH, BMP, LIPID, LIVER #### [facility] [address] [address] [address] Doc Mcgrath EGFR-AF MOLDOVAN >60 Normal >=60 [facility] [place] [facility] Comment on above: Performed By: #### T SH, BMP, LIPID, LIVER #### [facility] [address] [address] [address] Doc Mcgrath EGFR-NON AF MOLDOVAN >60 Normal >=60 [facility] Comment on above: Performed By: #### T SH, BMP, LIPID, LIVER #### [facility] [address] [address] [address] Doc Mcgrath Glucose [Mass/Vol] 91 mg/dL Normal 74-106 [facility] Comment on above: Performed By: #### T SH, BMP, LIPID, LIVER #### [facility] [address] [address] [address] Doc Mcgrath Potassium [Moles/Vol] 4.5 mmol/L Normal 3.5-5.1 [facility] Comment on above: Performed By: #### T SH, BMP, LIPID, LIVER #### [facility] [address] [address] [address] Doc Mcgrath Sodium [Moles/Vol] 140 mmol/L Normal 136-145 [facility] Comment on above: Performed By: #### T SH, BMP, LIPID, LIVER #### [facility] [address] [place], [place] [address] Dr. Doc Mcgrath Urea nitrogen [Mass/Vol] 19.0 mg/dL Critically high 7.0-18.0 [facility] Comment on above: Performed By: #### T SH, BMP, LIPID, LIVER #### [facility] [address] [place], [place] [address] Dr. Doc Mcgrath Urea nitrogen/Creatinine [Mass ratio] 27.9 mg/mg Normal [facility] Comment on above: Performed By: #### T SH, BMP, LIPID, LIVER #### [facility] [address] [place], [place] [address] Dr. Doc Mcgrath TSHon 11-06-2021 TSH 2.076 uIU/mL Normal 0.358-3.740 [facility] Comment on above: Performed By: #### T SH, BMP, LIPID, LIVER #### [facility] [address] [address] [address] Doc Mcgrath SARS-CoV-2 (COVID-19) RNA NA A+probe Ql (Resp)on 10-18-2021 SARS-CoV-2 (COVID-19) RNA DON+probe Ql (Unsp spec) Negative [facility] Other KNEE LEFT 1 OR 2 VWSon 04-03 KNEE LEFT 1 OR [facility] [address] [place] [id number] ========Patient Name: RAMA SALDANA : 1960Sex: FAge: Race: WhiteMRN: [id number]. Location: 84Patient Status: Date: 04/03/2017 9:40:00 AMCompleted Date: 04/03/2017 09:43 AMRequesting Provider: DEEPAK VELASCO Attending Provider: Report Copy To: Signs & Symptoms: S82.112D Disp fx of left tibial spine, subs for clos fx w routn heal [id number]: AthenaComments: , , , Ordering Provider - DEEPAK VELASCO PA-C , Exam: KNEE LEFT 1 OR 2 VWSAccession #: [id number] KNEE LEFT 1 OR 2 VWS 04/03/2017 [...] Electronically signed by:Jose E Leung. Transcribed by: [email or web address], User Resident: Electronically Signed by: JOSE E LEUNG @ 04/03/2017 12:13 PM Normal [facility] Comment on above: Order Comment: , , = ========= , Ordering Provider - DEEPAK VELASCO PA-C , KNEE LEFT 1 OR 2 [facility] 09-25 KNEE LEFT 1 OR 2 S [facility] [address] [place] [address] ========Patient Name: RAMA SALDANA : 1960Sex: FAge: Race: WhiteMRN: [id number]. Location: 84Patient Status: Date: 09/25/2016 1:30:00 PMCompleted Date: 09/25/2016 01:37 PMRequesting Provider: DEEPAK VELASCO Attending Provider: Report Copy To: Signs & Symptoms: S82.112D Disp fx of left tibial spine, subs for clos fx w routn heal [id number]: AthenaComments: , , , Ordering Provider - DEEPAK VELASCO PA-C , Exam: KNEE LEFT 1 OR 2 VWSAccession #: [id number] KNEE LEFT 1 OR 2 VWS 09/25/2016 [...] complete. Electronically signed by:Trace Griffin. Transcribed by: [email or web address], User Resident: Electronically Signed by: TRACE GRIFFIN @ 09/25/2016 04:21 PM Normal [facility] Comment on above: Order Comment: , , = ========= , Ordering Provider - DEEPAK VELASCO PA-C , KNEE LEFT 1 OR 2 VWSon 08-13 KNEE LEFT 1 OR 2 VWS [facility] [address] [place] [id number] ========Patient Name: RAMA SALDANA : 1960Sex: FAge: Race: WhiteMRN: [id number]. Location: 84Patient Status: Date: 08/13/2016 1:35:00 PMCompleted Date: 08/13/2016 01:37 PMRequesting Provider: DEEPAK VELASCO Attending Provider: Report Copy To: Signs & Symptoms: S82.112D Disp fx of left tibial spine, subs for clos fx w routn heal [id number]: AthenaComments: , , , Ordering Provider - DEEPAK VELASCO PA-C , Exam: KNEE LEFT 1 OR 2 VWSAccession #: [id number] KNEE LEFT 1 OR 2 VWS 08/13/2016 [...] findings. Electronically signed by:Janis Singh. Transcribed by: [email or web address], User Resident: BRYANT GREWALElectronically Signed by: JANIS SINGH @ 08/13/2016 06:32 PMI personally read this/these film(s) with this resident Normal [facility] Comment on above: Order Comment: , , = ========= , Ordering Provider - DEEPAK VELASCO PA-C , Vital Signs Date Time Vital Sign Value Performing Clinician Facility 10-18-2021 11:05-0400 Body height 160.02 cm Radha Galdamez Other [facility] Other 10-18-2021 11:05-0400 Body mass index (BMI) [Ratio] 26.21 kg/m2 [employer] Other [facility] Other 10-18-2021 11:05-0400 Body temperature 97.3 [degF] Radha Galdamez Other [facility] Other 10-18-2021 11:05-0400 Body weight 67.13 kg Radha Galdamez Other [facility] Other 10-18-2021 11:05-0400 Respiratory rate 18 /min Radha Galdamez Other [facility] Other 10-18-2021 11:05-0400 SaO2% (BldA) [Mass fraction] 98 % Radha Galdamez Other [facility] Other Encounters Encounter Date Encounter Type Care Provider Facility Start: 10-08-2023 End: 10-08-2023 ambulatory JUSTIN WILLIS Not Available Start: 12-03-2021 End: 12-03-[address] JUSTIN WILLIS Facility:[facility] Start: 11-07-2021 Encounter for genera l adult medical examination without abnormal findings DR JUSTIN WILLIS [facility] Start: 11-06-2021 End: 11-07-[address] JUSTIN WILLIS Facility:[facility] Start: 11-06-2021 End: 11-07-2021 Encounter for general adult medical examination without abnormal findings DR JUSTIN WILLIS Facility:[facility] Start: 10-18-2021 End: 10-18-2021 ambulatory Radha Galdamez Other [facility] Other Start: 10-18-2021 Office outpatient vi sit 25 minutes Radha Galdamez [facility] Start: 04-03-2017 End: 04-04-2017 Ambulatory REFERRED SELF Facility:[facility] Start: 09-25-2016 End: 09-26-2016 Ambulatory DEEPAK VELASCO Facility:[facility] Start: 08-13-2016 End: 08-14-2016 Ambulatory DEEPAK VELASCO Facility:[facility] Payers Date Payer Category Payer Unknown [id number] 2023 Medicare [id number] 1961 Unknown [id number] 1960 Unknown [id number] 2.16.84 [id number] 1960 Unknown [id number] 2.16.84 [id number] 1960 Unknown [id number] 2.16.84 [id number] Worker's Compensation [id number] Social History Date Type Detail Facility Sex Assigned At [facility] Other Evaluation note 10-18-2021 Note Date & [...] with PCP if febrile or new/worsening s/s. [facility] Other History general Narrative - Reported Note Date & Type Note Facility History general Narrative - Reported Type Medical History glaucoma [facility] Other Summary Purpose Family History No Family History Records FoundNo Family History Records FoundNo Family History Records Found Advance Directives No Advanced Directives Records FoundNo Advanced Directives Records FoundNo Advanced Directives Records Found Additional Source Comments INFORMATION SOURCE (unrecogn ized section and content) DATE CREATED AUTHOR 08/06/2017 [facility] DATE CREATED AUTHOR AUTHOR'S ORGANIZ ATION [facility]/11/2021 [facility] DATE CREATED AUTHOR AUTHOR'S ORGANIZ ATION 10/10/2023 [facility] EPIC REASON FOR VISIT (unrecogniz ed section and content) SILVER ESCAPE, SINUS CONGEST ION, SORE THRAOT, EARS PLUGGED, PUT ON ANTIBIOTIC AT [facility], BUT NEVER TESTED OR CLEANED EARS [...] BE BASED ON THE PRIMARY CLINICAL RECORDS. [facility] provides no warranty or guarantee of the accuracy or completeness of information in this document.
== END 2023-10-14 09:20 | disposition home or self-care (01) ==
LOC: MAMMO 09:19
PROVIDERS: PCP Family Medicine; Visit Provider Family Medicine
DX: Z12.31 Encounter for screening mammogram for malignant neoplasm of breast (principal); Z80.1 Family history of malignant neoplasm of trachea, bronchus and lung; Z80.41 Family history of malignant neoplasm of ovary
CPT/HCPCS: 77063; 77067

== ENCOUNTER 2024-02-29 11:07 | Outpatient (OUT) | payer MEDICARE, SELFPAY ==
--- NOTE | 2024-02-29 11:18 | XR_ITS ---
The [address] [address] Patient Name: RAMA SALDANA MRN: [id number] date: 1960 Sex: F Assigned Patient Location: [facility] Current Patient Location: [facility] Accession/Order Number: [id number] Exam Date: 02/29/2024 11:22 Report Date: 02/29/2024 13:50 At the request of: JUSTIN WILLIS Procedure: XR knee RT 2V PROCEDURE: XR knee RT 2V COMPARISON: None. HISTORY: Chronic Pain Of Right Knee FINDINGS: BONES:No acute fracture or dislocation. Mild to moderate osteoarthropathy with marginal osteophyte formation most significant in the lateral compartment. Chondrocalcinosis SOFT TISSUES:Negative. No visible soft tissue swelling. EFFUSION:None visible. OTHER: Negative. XR/XR knee RT 2V IMPRESSION: Mild to moderate osteoarthritis Electronically authenticated by: JACOB RUFF Date: 02/29/2024 13:50
--- NOTE | 2024-02-29 11:19 | XR_ITS ---
[facility] [place] [id number] Patient Name: RAMA SALDANA MRN: [id number] date: 1960 Sex: F Assigned Patient Location: [facility] Current Patient Location: [facility] Accession/Order Number: [id number] Exam Date: 02/29/2024 11:22 Report Date: 02/29/2024 13:51 At the request of: JUSTIN WILLIS Procedure: XR lumbar spine 2-3V EXAMINATION: XR lumbar spine 2-3V HISTORY: Chronic Bilateral Low Back Pain COMPARISON: No relevant comparison available. FINDINGS: BONES: Mild rotatory dextrocurvature centered at L3. Mild spondylosis and facet osteoarthropathy DISC SPACES: Moderate multilevel disc space narrowing with endplate sclerosis PARASPINOUS: Negative. No paraspinous abnormality is seen. OTHER: Negative. XR/XR lumbar spine 2-3V IMPRESSION: Mild to moderate degenerative change Electronically authenticated by: JACOB RUFF Date: 02/29/2024 13:51
== END 2024-02-29 11:08 | disposition home or self-care (01) ==
LOC: RAD 11:09
PROVIDERS: PCP Family Medicine; Visit Provider Family Medicine
DX: M25.561 Pain in right knee (principal); G89.29 Other chronic pain; M54.41 Lumbago with sciatica, right side; M51.369 Other intervertebral disc degeneration, lumbar region without mention of lumbar back pain or lower extremity pain; M17.11 Unilateral primary osteoarthritis, right knee
CPT/HCPCS: 72100; 73560

== ENCOUNTER 2024-10-27 08:31 | Outpatient (OUT) | payer MEDICARE, SELFPAY ==
--- OUTSIDE RECORDS SUMMARY | 2024-10-27 08:35 | XMS_ITS | Encounter Summary ---
Author Organization [facility] Address [address] [place] [address] Care Team Providers Care Claims Vice President Name Role Phone Justin Willis MD Primary Care Provider [phone] Encounter Details Date Type Department Care Team (Late st Contact Info) Description 02/29/2024 Clinisync Result Encounter [facility] External Department Unsolicited Justin Willis MD [address] [place] [address] Social History Tobacco Use Types Packs/Day Years Used Date Smoking Tobacco: Never Smokeless Tobacco: Never PHQ-2 Answer Date Recorded Patient Health Questionnaire-2 Score 0 10/08/2023 Comments Unknown Sex and Gender Information Value Date Recorded Sex Assigned at Not on file Legal Sex Female 10:46 AM EDT Gender Identity Not on file Sexual Orientation Not on file documented as of this encounter Plan of Treatment Not on file documented as of this encounter Procedures Procedure Name Priority Date/Time Associated Diagnosis Comments XR KNEE 1-2 VIEWS RIGHT 02/29/2024 1:50 PM EST documented in this encounter Results * XR knee 1 or 2 views right (02/29/2024 1:50 PM EST) Anatomical Region Laterality Modality Lower Extremities, Knee Right [facility] 02/29/2024 1:50 PM EST Narrative 02/29/2024 1:52 PM EST The [address] [address] XRay Report Signed Patient: RAMA HODGSON MR#: [id number] : 1960 Acct:[id number] Age/Sex: 64 / F ADM Date: 02/29/24 Loc: RAD Attending Dr: Justin Willis M.D. Ordering Physician: Justin Willis M.D. Date of Service: 02/29/24 Procedure(s): XR knee RT 2V Accession Number(s): [id number] cc: Justin Willis M.D. [facility] [place] [address] Patient Name: RAMA HODGSON MRN: [id number] date: 1960 Sex: F Assigned Patient Location: RAD Current Patient Location: RAD Accession/Order Number: [id number] Exam Date: 02/29/2024 11:22 Report Date: 02/29/2024 13:50 At the request of: JUSTIN WILLIS Procedure: XR knee RT 2V PROCEDURE: XR knee RT 2V COMPARISON: None. HISTORY: Chronic Pain Of Right Knee FINDINGS: BONES:No acute fracture or dislocation. Mild to moderate osteoarthropathy with marginal osteophyte formation most significant in the lateral compartment. Chondrocalcinosis SOFT TISSUES:Negative. No visible soft tissue swelling. EFFUSION:None visible. OTHER: Negative. XR/XR knee RT 2V IMPRESSION: Mild to moderate osteoarthritis Electronically authenticated by: JACOB RUFF Date: 02/29/2024 13:50 Dictated By: Jacob Ruff M.D. Signed By: 02/29/24 1352 DD/ 1350 TD/TT: Biometry Teacher: Procedure Note Radiology, Radiologist, MD - 02/29/2024 [place] [address] XRay Report Signed Patient: RAMA HODGSON JMR#: [id number] : 1960cct:[id number] Age/Sex: 64 / FADM Date: 02/29/24 Loc: RAD Attending Dr: Justin Willis M.D. Ordering Physician: Justin Willis M.D. Date of Service: 02/29/24 Procedure(s): XR knee RT 2V Accession Number(s): [id number] cc: Justin Willis M.D. [place] [id number] Patient Name: RAMA HODGSON MRN: [id number] date: 1960 Sex: F Assigned Patient Location: RAD Current Patient Location: RAD Accession/Order Number: [id number] Exam Date: 02/29/2024 11:22 Report Date: 02/29/2024 13:50 At the request of: JUSTIN WILLIS Procedure: XR knee RT 2V PROCEDURE: XR knee RT 2V COMPARISON: None. HISTORY: Chronic Pain Of Right Knee FINDINGS: BONES:No acute fracture or dislocation. Mild to moderate osteoarthropathywith marginal osteophyte formation most significant in the lateral compartment. Chondrocalcinosis SOFT TISSUES:Negative. No visible soft tissue swelling. EFFUSION:None visible. OTHER: Negative. XR/XR knee RT 2V IMPRESSION: Mild to moderate osteoarthritis Electronically authenticated by: JACOB RUFF Date: 02/29/2024 13:50 Dictated By: Jacob Ruff M.D. Signed By:02/29/24 1352 DD/ 1350 TD/TT: Biometry Teacher: Justin Willis MD IMG XR PROCEDURES Final Result documented in this encounter Visit Diagnoses Not on filedocumented in this encounter Additional Health Concerns Assessment Noted Time PHQ-9 Depression Total Score: 5 10/08/19 24 10:00 AM EDT documented as of this encounter Care Teams Claims Vice President Relationship Specialty Start Date End Date Justin Willis MD PCP - General Family Medicine 10/08/23 documented as of this encounter
--- OUTSIDE RECORDS SUMMARY | 2024-10-27 08:35 | XMS_ITS | Encounter Summary ---
Author Organization [facility] Address [address] [place] [address] Care Team Providers Care Aerospace Mechanic Name Role Phone Davonte Wilkinson MD Primary Care Provider [phone] Encounter Details Date Type Department Care Team (Late st Contact Info) Description 10/14/2023 Clinisync Result Encounter [facility] External Department Unsolicited Davonte Wilkinson MD [address] [place] [id number] Social History Tobacco Use Types Packs/Day Years [...] Procedure Name Priority Date/Time Associated Diagnosis Comments MM TOMOSYNTHESIS SCREENING BI 10/14/2023 12:38 PM EDT documented in this encounter Results * MM TOMOSYNTHESIS SCREENING BI (10/14/2023 12:38 PM EDT) Anatomical Region Laterality Modality Other 10/14/2023 12:3 8 PM EDT Narrative 10/14/2023 12:38 PM EDT The [address] [address] Mammography Report Signed Patient: RAMA HODGSON MR#: [id number] : 1960 Acct:[id number] Age/Sex: 63 / F ADM Date: 10/14/23 Loc: MAMMO Attending Dr: Davonte Wilkinson M.D. Ordering Physician: Davonte Wilkinson M.D. Results: Date of Service: 10/14/23 Follow Up: Procedure(s): MM tomosynthesis screening BI Accession Number(s): [id number] cc: Davonte Wilkinson M.D. Patient Name: RAMA HODGSON MR#: [id number] : 1960 Exam Date: 10/14/2023 Ordering Doctor: DR Davonte Wilkinson . RADIOLOGY REPORT PROCEDURE: MM TOMOSYNTHESIS SCREENING BI COMPARISON: MG MAMM SCREEN 3D SOPHIA CAD, 12/10/2020. MG MAMM SOPHIA SCRN W CAD DIG, 10/10/2016. INDICATIONS: Screening Calculator Name NCI Breast Cancer Risk Assessment Tool 5 Year Breast Cancer Risk 1.80% Lifetime Breast Cancer Risk 6.90% Personal Breast Cancer No Personal Ovarian Cancer No Treatments None Family Cancers Mother with ovarian cancer at age 52; Father with lung cancer at age 55. LOCATION: [facility] BREAST COMPOSITION: There are scattered areas of fibroglandular density. FINDINGS: DIAGNOSTIC CATEGORY 2--BENIGN FINDING. NO CHANGE FROM COMPARISON. Scattered benign-appearing calcifications are present. Scattered benign-appearing lymph nodes are present. RIGHT BREAST: No significant suspicious finding. LEFT BREAST: No significant suspicious finding. RECOMMENDATIONS: ROUTINE MAMMOGRAM AND CLINICAL EVALUATION IN 12 MONTHS. PLEASE NOTE: A NORMAL MAMMOGRAM DOES NOT EXCLUDE THE POSSIBILITY OF BREAST CANCER. A CLINICALLY SUSPICIOUS PALPABLE LUMP SHOULD BE BIOPSIED. Dictated by: Tex Albert MD on 10/14/2023 at 12:36 Approved by: Tex Albert MD on 10/14/2023 at 12:37 Dictated By: Tex Albert M.D. Signed By: 10/14/23 1238 DD/ 1238 TD/TT: Aircraft Engine Mechanic Supervisor: Procedure Note Radiology, RadiologistMD - 10/14/2023 [place] [address] Mammography Report Signed Patient: RAMA HODGSON JMR#: [id number] : 1960cct:[id number] Age/Sex: 63 / FADM Date: 10/14/23 Loc: MAMMO Attending Dr: Davonte Wilkinson M.D. Ordering Physician: Davonte Wilkinson M.D.Results: Date of Service: 10/14/23Follow Up: Procedure(s): MM tomosynthesis screening BI Accession Number(s): [id number] cc: Davonte Wilkinson M.D. Patient Name: RAMA HODGSON MR#: [id number] : 1960 Exam Date: 10/14/2023 Ordering Doctor: DR Davonte Wilkinson . RADIOLOGY REPORT PROCEDURE: MM TOMOSYNTHESIS SCREENING BI COMPARISON: MG MAMM SCREEN 3D SOPHIA CAD, 12/10/2020. MG MAMM SOPHIA SCRN WCAD DIG, 10/10/2016. INDICATIONS: Screening Calculator Name NCI Breast Cancer Risk Assessment Tool 5 Year Breast Cancer Risk 1.80% Lifetime Breast Cancer Risk 6.90% Personal Breast Cancer No Personal Ovarian Cancer No Treatments None Family Cancers Mother with ovarian cancer at age 52; Father with lung cancer at age 55. LOCATION: [facility] BREAST COMPOSITION: There are scattered areas of fibroglandulardensity. FINDINGS: DIAGNOSTIC CATEGORY 2--BENIGN FINDING. NO CHANGE FROM COMPARISON. Scattered benign-appearing calcifications are present. Scattered benign-appearing lymph nodes are present. RIGHT BREAST: No significant suspicious finding. LEFT BREAST: No significant suspicious finding. RECOMMENDATIONS: ROUTINE MAMMOGRAM AND CLINICAL EVALUATION IN 12 MONTHS. PLEASE NOTE: A NORMAL MAMMOGRAM DOES NOT EXCLUDE THE POSSIBILITY OFBREAST CANCER. A CLINICALLY SUSPICIOUS PALPABLE LUMP SHOULD BE BIOPSIED. Dictated by: Tex Albert MD on 10/14/2023 at 12:36 Approved by: Tex Albert MD on 10/14/2023 at 12:37 Dictated By: Tex Albert M.D. Signed By:10/14/23 1238 DD/ 1238 TD/TT: Aircraft Engine Mechanic Supervisor: Davonte Wilkinson MD [facility] Final Result documented in this encounter Visit Diagnoses Not on filedocumented in this encounter Additional Health Concerns Assessment Noted Time PHQ-9 Depression Total Score: 5 10/08/19 24 10:00 AM EDT documented as of this encounter Care Teams Aerospace Mechanic Relationship Specialty Start Date End Date Davonte Wilkinson MD PCP - General Family Medicine 10/08/23 documented as of this encounter
--- OUTSIDE RECORDS SUMMARY | 2024-10-27 08:35 | XMS_ITS | Encounter Summary ---
Author Organization [facility] Address [address] [place] [address] Care Team Providers Care Globe Tester Name Role Phone Justin Willis MD Primary Care Provider [phone] Encounter Details Date Type Department Care Team (Late st Contact Info) Description 02/29/2024 Clinisync Result Encounter [facility] External Department Unsolicited Justin Willis MD [address] [place] [phone] Social History Tobacco Use Types Packs/Day Years [...] Name Priority Date/Time Associated Diagnosis Comments XR LUMBAR SPINE 2 OR 3V 02/29/2024 1:51 PM EST documented in this encounter Results * XR LUMBAR SPINE 2 OR 3V (02/29/2024 1:51 PM EST) Anatomical Region Laterality Modality Radiographic Valerie ging 02/29/2024 1:51 PM EST Narrative 02/29/2024 1:54 PM EST The [address] [address] XRay Report Signed Patient: RAMA HODGSON MR#: [id number] : 1960 Acct:[id number] Age/Sex: 64 / F ADM Date: 02/29/24 Loc: RAD Attending Dr: Justin Willis M.D. Ordering Physician: Justin Willis M.D. Date of Service: 02/29/24 Procedure(s): XR lumbar spine 2-3V Accession Number(s): [id number] cc: Justin Willis M.D. [facility] [place] [address] Patient Name: RAMA HODGSON MRN: [facility]:[id number] date: 1960 Sex: F Assigned Patient Location: RAD Current Patient Location: RAD Accession/Order Number: [id number] Exam Date: 02/29/2024 11:22 Report Date: 02/29/2024 13:51 At the request of: JUSTIN WILLIS Procedure: XR lumbar spine 2-3V EXAMINATION: XR lumbar spine 2-3V HISTORY: Chronic Bilateral Low Back Pain COMPARISON: No relevant comparison available. FINDINGS: BONES: Mild rotatory dextrocurvature centered at L3. Mild spondylosis and facet osteoarthropathy DISC SPACES: Moderate multilevel disc space narrowing with endplate sclerosis PARASPINOUS: Negative. No paraspinous abnormality is seen. OTHER: Negative. XR/XR lumbar spine 2-3V IMPRESSION: Mild to moderate degenerative change Electronically authenticated by: JACOB RUFF Date: 02/29/2024 13:51 Dictated By: Jacob Ruff M.D. Signed By: 02/29/24 1354 DD/ 1351 TD/TT: Director Of Casino Marketing: Procedure Note Radiology, Radiologist, MD - 02/29/2024 [place] [address] XRay Report Signed Patient: RAMA HODGSON JMR#: [id number] : 8Acct:[id number] Age/Sex: 64 / FADM Date: 02/29/24 Loc: RAD Attending Dr: Justin Willis M.D. Ordering Physician: Justin Willis M.D. Date of Service: 02/29/24 Procedure(s): XR lumbar spine 2-3V Accession Number(s): [id number] cc: Justin Willis M.D. [facility] [place] [id number] Patient Name: RAMA HODGSON MRN: [id number] date: 1960 Sex: F Assigned Patient Location: RAD Current Patient Location: RAD Accession/Order Number: [id number] Exam Date: 02/29/2024 11:22 Report Date: 02/29/2024 13:51 At the request of: JUSTIN WILLIS Procedure: XR lumbar spine 2-3V EXAMINATION: XR lumbar spine 2-3V HISTORY: Chronic Bilateral Low Back Pain COMPARISON: No relevant comparison available. FINDINGS: BONES: Mild rotatory dextrocurvature centered at L3. Mild spondylosis and facet osteoarthropathy DISC SPACES: Moderate multilevel disc space narrowing with endplatesclerosis PARASPINOUS: Negative. No paraspinous abnormality is seen. OTHER: Negative. XR/XR lumbar spine 2-3V IMPRESSION: Mild to moderate degenerative change Electronically authenticated by: JACOB RUFF Date: 02/29/2024 13:51 Dictated By: Jacob Ruff M.D. Signed By:02/29/24 1354 DD/ 1351 TD/TT: Director Of Casino Marketing: Justin Willis MD IMG XR PROCEDURES Final Result documented in this encounter Visit Diagnoses Not on filedocumented in this encounter Additional Health Concerns Assessment Noted Time PHQ-9 Depression Total Score: 5 10/08/19 24 10:00 AM EDT documented as of this encounter Care Teams Globe Tester Relationship Specialty Start Date End Date Justin Willis MD PCP - General Family Medicine 10/08/23 documented as of this encounter
--- OUTSIDE RECORDS SUMMARY | 2024-10-27 08:35 | XMS_ITS | Clinical Summary ---
Author Organization [facility] Address [address] [facility] [place] [address] Care Team Providers Care Elementary Vocal Music Teacher Name Role Phone Davonte Wilkinson MD Primary Care Provider [phone] Allergies Active Allergy Reactions Criticality Noted Date Comments Codeine 10/08/2023 Tramadol 10/08/2023 Medications latanoprost (Xalatan) 0.005 % ophthalmic solution Administer 1 drop into both eyes at bedtime 4 Active Meloxicam 15 MG tablet dispersibleIndi cations:Chronic bilateral low back pain with right-sided sciatica Take 15 mg by mouth Daily 30 tablet 3 5 Active Active Problems Problem Noted Date Diagnosed Date Chronic pain of right knee 02/29/2024 Assessment & Plan (02/29/2024 10:49 AM EST): Pain for months and likely arthritis changes. Check x-ray and start mobic. Ice PRN. If no improvement or worsens will need PT. Chronic bilateral low back pain with right-sided sciatica 02/29/2024 Assessment & Plan (02/29/2024 10:49 AM EST): Pain for months and likely arthritis changes. Check x-ray and start mobic. Ice PRN. If no improvement or worsens will need PT. Chronic arthritis 10/08/2023 Flexural eczema 10/08/2023 Glaucoma of both eyes 10/08/2023 Hallux valgus, acquired, left 10/08/2023 Hammer toe of left foot 10/08/2023 Nocturnal leg cramps 10/08/2023 Medicare annual wellness visit, subsequent 10/07 Assessment & Plan (10/08/2023 10:38 AM EDT): Due for labs. Discussed proper diet and regular aerobic exercise. Need aerobic exercise 5-6 days a week for 30 minutes at a time. Smaller portions and limit total calories. Cologuard due in December and will order. Tetanus every 10 years. Advised not to smoke. Discussed daily Aspirin therapy. Lipid screening 10/08/2023 Encounter for long-term (current) use of medicat ions 10/08/2023 Resolved Problems Problem Noted Date Diagnosed Date Resolved Date Glaucoma 05/08/2016 02/29/2024 Social History Tobacco Use Types Packs/Day Years Used Date Smoking Tobacco: Never Smokeless Tobacco: Never Tobacco Cessation:Counseling Given: Not Answered PHQ-2 Answer Date Recorded Patient Health Questionnaire-2 Score 0 10/08/2023 Comments Unknown Sex and Gender Information Value Date Recorded Sex Assigned at Not on file Legal Sex Female 10:46 AM EDT Gender Identity Not on file Sexual Orientation Not on file Last Filed Vital Signs Vital Sign Reading Time Taken Comments Blood Pressure 128/66 02/29/2024 10:24 AM EST Pulse 83 02/29/2024 10:24 AM EST Temperature 36.2 C (97.1 F) 02/29/2024 10:24 AM EST Respiratory Rate 22 02/29/2024 10:24 AM EST Oxygen Saturation 97% 02/29/2024 10:24 AM EST Inhaled Oxygen Concentration - - Weight 68 kg (150 lb) 02/29/2024 10:24 AM EST Height 160 cm (5' 3 ) 02/29/2024 10:24 AM EST Body Mass Index 26.57 02/29/2024 10:24 AM EST Plan of Treatment Health Maintenance Due Date Last Done Comments CT Colonography 1960 Colonoscopy 1960 FIT 1960 FOBT 1960 Sigmoidoscopy 1960 Pneumococcal Vaccine: 65+ Ye ars (1 of 1 - PCV) 02/06/2008 Mammogram 10/13/2024 10/14/2023, 09/17, 10/09/2015 Influenza Vaccine (#1) 2024 Colorectal Cancer Screening 01/03/2027 FIT-DNA 01/03/2027 01/04/2024, 12/24/2020 Procedures Procedure Name Priority Date/Time Associated Diagnosis Comments LAB COLOGUARD COLON CANCER SCREEN Routine 01/04/2024 8:10 AM EST Colon cancer screening MM TOMOSYNTHESIS SCREENING BI 10/14/2023 12:38 PM EDT from Last 3 Months or Most Recently Relevant to Health Maintenance Results * Cologuard?? colon cancer screening (01/04/2024 8:10 AM EST) NONINV COLON CA DNA+OCC BLD SCRN STL-IMP Negative Negative 01/09/2024 6:22 PM EST [facility] (CLIA #:[id number]) Comment: NEGATIVE TEST RESULT. A negative Cologuard result indicates a low likelihood that a colorectal cancer (CRC) or advanced adenoma (adenomatous polyps with more advanced pre-malignant features) is present. The chance that a person with a negative Cologuard test has a colorectal cancer is less than 1 in 1500 (negative predictive value >99.9%) or has an advanced adenoma is less than 5.3% (negative predictive value 94.7%). These data are based on a prospective cross-sectional study of 10,000 individuals at average risk for colorectal cancer who were screened with both Cologuard and colonoscopy. (Celine Blank al, N Engl J Med 2014;370(14):7216-8118) The normal value (reference range) for this assay is negative. COLOGUARD RE-SCREENING RECOMMENDATION: Periodic colorectal cancer screening is an important part of preventive healthcare for asymptomatic individuals at average risk for colorectal cancer. Following a negative Cologuard result, the Stateless Cancer Society and U.S. Multi-Society Task Force screening guidelines recommend a Cologuard re-screening interval of 3 years. References: Stateless Cancer Society Guideline for Colorectal Cancer Screening: https://www.cancer.org/cancer/dtsrg-aoggxm-bkmxod/ncblphpna-eesprvtcc-vzkeywv/ac s-rec ommendations.html.; Toñito DK, [place] CR, Wood MUÑIZ, Colorectal Cancer Screening: Recommendations for Physicians and Patients from the U.S. Multi-Society Task Force on Colorectal Cancer Screening , Am J Gastroenterology 2017; 112:1026-9664. TEST DESCRIPTION: Composite algorithmic analysis of stool DNA-biomarkers with hemoglobin immunoassay. Quantitative values of individual biomarkers are not reportable and are not associated with individual biomarker result reference ranges. Cologuard is intended for colorectal cancer screening of adults of either sex, 45 years or older, who are at average-risk for colorectal cancer (CRC). Cologuard has been approved for use by the U.S. FDA. The performance of Cologuard was established in a cross sectional study of average-risk adults aged 50-84. Cologuard performance in patients ages 45 to 49 years was estimated by sub-group analysis of near-age groups. Colonoscopies performed for a positive result may find as the most clinically significant lesion: colorectal cancer [4.0%], advanced adenoma (including sessile serrated polyps greater than or equal to 1cm diameter) [20%] or non- advanced adenoma [31%]; or no colorectal neoplasia [45%]. These estimates are derived from a prospective cross-sectional screening study of 10,000 individuals at average risk for colorectal cancer who were screened with both Cologuard and colonoscopy. (Celine Connors et al, N Engl J Med 2014;370(14):4658-5653.) Cologuard may produce a false negative or false positive result (no colorectal cancer or precancerous polyp present at colonoscopy follow up). A negative Cologuard test result does not guarantee the absence of CRC or advanced adenoma (pre-cancer). The current Cologuard screening interval is every 3 years. (Stateless Cancer Society and U.S. Multi-Society Task Force). Cologuard performance data in a 10,000 patient pivotal study using colonoscopy as the reference method can be accessed at the following location: www.Splashup.com/results. Additional description of the Cologuard test process, warnings and precautions can be found at www.[employer] SolutionsogAcceleforcerd.com. Stool specimen (specimen) 01/04/2024 8:10 AM EST 01/05/2024 9:27 AM EST Davonte Wilkinson MD LAB MOLECULAR DIAGNOSTICS ORDERA BLES Final Result [facility] (CLIA #:[id number]) [place] [address], * MM TOMOSYNTHESIS SCREENING BI (10/14/2023 12:38 PM EDT) Anatomical Region Laterality Modality Other 10/14/2023 12:3 8 PM EDT Narrative 10/14/2023 12:38 [place] [address] Mammography Report Signed Patient: RAMA SALDANA MR#: [id number] : 1960 Acct:[id number] Age/Sex: 63 / F ADM Date: 10/14/23 Loc: MAMMO Attending Dr: Davonte Wilkinson M.D. Ordering Physician: Davonte Wilkinson M.D. Results: Date of Service: 10/14/23 Follow Up: Procedure(s): MM tomosynthesis screening BI Accession Number(s): [id number] cc: Davonte Wilkinson M.D. Patient Name: RAMA SALDANA MR#: [id number] : 1960 Exam Date: 10/14/2023 Ordering Doctor: [...] lung cancer at age 53. LOCATION: [facility] BREAST COMPOSITION: There are scattered areas of [...] Signed By: 10/14/23 1238 DD/ 1238 TD/TT: Jr. Java Developer: Procedure Note Radiology, Radiologist, MD - 10/14/2023 [place] [address] Mammography Report Signed Patient: RAMA SALDANA JMR#: [id number] : 1960cct:[id number] Age/Sex: 63 / FADM Date: 10/14/23 Loc: MAMMO Attending Dr: Davonte Wilkinson M.D. Ordering Physician: Davonte Wilkinson M.D.Results: Date of Service: 10/14/23Follow Up: Procedure(s): MM tomosynthesis screening BI Accession Number(s): [id number] cc: Davonte Wilkinson M.D. Patient Name: RAMA SALDANA MR#: [id number] : 1960 Exam Date: 10/14/2023 Ordering Doctor: [...] lung cancer at age 53. LOCATION: [facility] BREAST COMPOSITION: There are scattered areas of [...] M.D. Signed By:10/14/23 1238 DD/ 1238 TD/TT: Jr. Java Developer: Davonte Wilkinson MD [facility] Final Result from Last 3 Months or Most Recently Relevant to Health Maintenance Insurance [facility] [employer] Care Teams Elementary Vocal Music Teacher Relationship Specialty Start Date End Date Davonte Wilkinson MD PCP - General Family Medicine 10/08/23
--- OUTSIDE RECORDS SUMMARY | 2024-10-27 08:35 | XMS_ITS | Encounter Summary ---
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 Name Role Phone Davonte Wilkinson MD Primary Care Provider [phone] Encounter Details Date Type Department Care Team (Late st Contact Info) Description 10/08/2023 Orders Only [facility] [address] [place] [address] Davonte Wilkinson MD [address] [place] [address] Social History Tobacco Use Types Packs/Day Years Used Date Smoking Tobacco: Never Smokeless Tobacco: Never PHQ-2 Answer Date Recorded Patient Health Questionnaire-2 Score 0 10/08/2023 Comments Unknown Sex and Gender Information Value Date Recorded Sex Assigned at Not on file Legal Sex Female 10:46 AM EDT Gender Identity Not on file Sexual Orientation Not on file documented as of this encounter Functional Status * Over the past 2 weeks, how often have you been bothered by any of the following problems? Question Answer Date of Assessment Author Little interest or pleasure in doing things Not at all 10/08/2023 10:00 AM Klaudia Anton M A Feeling down, depressed, or hopeless Not at all 10/08/2023 10:00 AM Klaudia Anton M A Patient Health Questionnaire -2 Score 0 10/08/2023 10:00 AM Klaudia Anton M A * Question Answer Date of Assessment Author Trouble falling or staying asleep, or sleeping too much More than half the days 10/08/2023 10:00 AM Klaudia Anton MA Feeling tired or having little energy Nearly every day 10/08/2023 10:00 AM Klaudia Anton MA Poor appetite or overeating Not at all 10/08/2023 10:00 AM Klaudia Anton MA Feeling bad about yourself - or that you are a failure or have let yourself or your family down Not at all 10/08/2023 10:00 AM Klaudia Anton MA Trouble concentrating on things, such as reading the newspaper or watching television Not at all 10/08/2023 10:00 AM Klaudia Anton MA Moving or speaking so slowly that other people could have noticed? Or the opposite - being so fidgety or restless that you have been moving around a lot more than usual. Not at all 10/08/2023 10:00 AM Klaudia Anton MA Thoughts that you would be better off or hurting yourself in some way Not at all 10/08/2023 10:00 AM Klaudia Anton MA Patient Health Questionnaire-9 Score 5 10/08/2023 10:00 AM Klaudia Anton MA * How difficult have these problems made it for you to do your work, take care of things at home, or get along with other people? Answer Date of Assessment Author Not difficult at all 10/08/2023 10:00 AM EDT Klaudia Kelly MA documented as of this encounter Plan of Treatment Not on file documented as of this encounter Visit Diagnoses Not on filedocumented in this encounter Additional Health Concerns Assessment Noted Time PHQ-9 Depression Total Score: 5 10/08/19 10:00 AM EDT documented as of this encounter Care Teams Glassware Finisher Relationship Specialty Start Date End Date Davonte Wilkinson MD PCP - General Family Medicine 10/08/23 documented as of this encounter
--- OUTSIDE RECORDS SUMMARY | 2024-10-27 08:37 | XMS_ITS | CCD ---
Author Organization [facility] Care Team Providers Care Warehouse Assistant Name Role Phone KRISTA, DEEPAK Unavailable Unavailable KRISTA, DEEPAK Unavailable Unavailable STIERWALT, JACQUELINE Unavailable Unavailable KRISTA, DEEPAK Unavailable Unavailable KRISTA, DEEPAK Unavailable Unavailable KRISTA, DEEPAK Unavailable Unavailable STIERWALT, JACQUELINE Unavailable Unavailable STIERWALT, JACQUELINE Unavailable Unavailable SELF, REFERRED Unavailable Unavailable SELF, REFERRED Unavailable Unavailable KRISTA, DEEPAK Unavailable Unavailable KIRSTA, DEEPAK Unavailable Unavailable Galdamez, Radha Unavailable ALBA, DR DAVONTE Colunga Admitting Unavailable NADERER, DR DAVONTE Colunga Attending Unavailable NADERER, DR DAVONTE Colunga Primary Care Unavailable NADEREAzar, DR DAVONTE Colunga Consulting Unavailable ALBA, DR DAVONTE Colunga Admitting Unavailable NADEREAzar, DR DAVONTE Colunga Attending Unavailable NADEREAzar, DR DAVONTE Colunga Primary Care Unavailable ALBA, DR DAVONTE Colunga Consulting Unavailable Davonte Willis MD Primary Care Provider DAVONTE WILLIS Attending Unavailable ALBA, DAVONTE Attending Unavailable Davonte Willis MD Primary Care Provider Davonte Willis MD Attending Provider Allergies Allergy Classification Reported Allergen(s) Allergy Type Date of Onset Reaction(s) Facility (3 sources) codeine Drug Allergy 7 AOF, vomiting [facility] (2 sources) traMADol Drug Allergy 7 AOF [facility] (7 sources) Codeine Drug Allergy 4 vomiting [facility] (8 sources) traMADol Drug Allergy 4 vomiting [facility] Other (1 source) meloxicam Drug Allergy 5 Palpitations [facility] Comment on above: mood swings Medications Current Medications Medication Drug Class(es) Dates Sig (Normalized) Sig (Original) latanoprost 0.05 mg/ml ophthalmic solution (8 sources) Prostaglandin Analog Start: 10-20-2024 take 1 drop(s) into the eye(s) once daily at bedtime Latanoprost 0.005 % drops Active 1 DROPS EYE-BOTH Daily at bedtime October 20, 2024 12:00am Complies with drug therapy Start: 08-30-2023 take 1 drop(s) into the eye(s) at bedtime latanoprost (Xalatan) 0.005 % ophthalmic solution Administer 1 drop into both eyes at bedtime 08/30/2023 Active Latanoprost Acti ve Completed/Discontinued Medications Medication Drug Class(es) Dates Sig (Normalized) Sig (Original) meloxicam 15 mg oral tablet (3 sources) Nonsteroidal Anti-inflammatory Drug Start: 10-20-2024 End: 10-21-2024 take 1 tablet by mouth once daily Meloxicam 15 mg tablet Discontinued 15 MG PO Daily October 20, 2024 12:00am October 21, 2024 9:30am Start: 02-29-2024 take 1 tablet by fabienne th once daily Meloxicam 15 MG tablet dispersible Indications: Chronic bilateral low back pain with right-sided sciatica Take 15 mg by mouth Daily 30 tablet 3 02/29/2024 Active Start: 02-29-2024 take 1 tablet by fabienne th once daily Meloxicam 15 MG tablet dispersible Indications: Chronic bilateral low back pain with right-sided sciatica Take 15 mg by mouth Daily 30 tablet 3 02/29/2024 Active Problems Active Problems Problem Classification Problem Date Documented Date Episodic/Chronic Acquired foot deformities (16 sources) Acquired left hallux valgus; Translations: [Hallux valgus (acquired), left foot] Onset: 10-08-2023 10-08-2023 Chronic Allergic reactions (8 sources) Flexural eczema; Translations: [Flexural eczema] Onset: 10-08-2023 10-08-2023 Chronic Disorders of lipid metabolism (2 sources) Dyslipidemia; Translations: [Hyperlipidemia, unspecified] 10-21-2024 Chronic Glaucoma (10 sources) Bilateral glaucoma; Translations: [Unspecified glaucoma] Onset: 05-08-2016 Resolved: 02-29-2024 10-08-2023 Chronic Gout and other crystal arthropathies (1 source) Other chondrocalcinosis, left knee; Translations: [OTHER CHONDROCALCINOSIS, LEFT KNEE] Onset: 08-13-2016 Chronic Immunizations and screening for infectious disease (1 source) Encounter for screening for human papillomavirus (HPV); Translations: [ENC SCREENING HUMAN PAPILLOMAVIRUS] Onset: 12-05-2021 Episodic Osteoarthritis (11 sources) Unilateral primary osteoarthritis, left knee; Translations: [Chronic arthritis] Onset: 04-03-2017 10-08-2023 Chronic Other aftercare (5 sources) Long-term current use of drug therapy; Translations: [Other rn long term care (current) drug therapy] Onset: 10-08-2023 10-08-2023 Episodic Other connective tissue disease (8 sources) Cramp in lower limb; Translations: [Sleep related leg cramps] Onset: 10-08-2023 10-08-2023 Chronic Other nervous system disorders (1 source) Chronic low back pain; Translations: [Other chronic pain] 10-20-2024 Chronic Other non-traumatic joint disorders (5 sources) Pain in right knee; Translations: [Pain in joint, lower leg] Onset: 02-29-2024 02-29-2024 Episodic Other screening for suspected conditions (not mental disorders or infectious disease) (17 sources) Encounter for screening for malignant neoplasm of cervix; Translations: [Patient encounter status] Onset: 12-03-2021 Episodic Spondylosis; intervertebral disc disorders; other back problems (4 sources) Chronic low back pain; Translations: [Lumbago with sciatica, right side] Onset: 02-29-2024 02-29-2024 Episodic Unclassified (2 sources) Unknown / UNK(Unknown) [...] encounter for closed fracture] Onset: 08-13-2016 Episodic Mood disorders (6 sources) Mood disorders Onset: 10-08-2023 10-08-2023 Other aftercare (5 sources) Patient encounter status; Translations: [Other rn long term care (current) drug therapy] Onset: 10-08-2023 10-08-2023 Episodic Other ear and sense organ disorders (1 source) Impacted cerumen, bilateral Onset: 10-18-2021 Resolved: 10-18-2021 Episodic Other upper respiratory infections (1 source) Acute upper respiratory infection, unspecified Onset: 10-18-2021 Resolved: 10-18-2021 Episodic Unclassified (1 source) Contact with and (suspected) exposure to covid-19 Z20.822 Onset: 10-18-2021 Resolved: 10-18-2021 Results Test Name Value Interpretation Reference Range Facility ALL CBC WITH AUTO DIFFon BASOPHILS ABSOLUTE AUTO 0.1 [facility] Basophils/100 WBC (Bld) 1.1 % 0.2 - 2.0 % [facility] Eosinophils/100 WBC (Bld) 6.0 % 0.9 - 7.0 % [facility] Erythrocyte distribution width (RBC) [Ratio] 13.2 % 11.0 - 15.0 % [facility] Hematocrit (Bld) [Volume fraction] 43.3 % 36.0 - 48.0 % [facility] Hem[facility] (Bld) [Mass/Vol] 14.4 g/dL 12.0 - 16.0 g/dL [facility] IMMATURE GRANULOCYTES ABS AUTO 0.01 [facility] Immature granulocytes/100 WBC (Bld) 0.2 % 0.0 - 0.5 % [facility] LYMPHOCYTES ABSOLUTE AUTO 1.8 [facility] Lymphocytes/100 WBC (Bld) 31.6 % 20.5 - 60.0 % [facility] MCH (RBC) [Entitic mass] 30.6 pg 26.7 - 34.0 pg [facility] MCHC (RBC) [Mass/Vol] 33.3 g/dL 29.9 - 35.2 g/dL [facility] MCV (RBC) [Entitic vol] 91.9 fL 81.0 - 99.0 fL [facility] MONOCYTES ABSOLUTE AUTO 0.5 [facility] Monocytes/100 WBC (Bld) 8.2 % 1.7 - 12.0 % [facility] NEUTROPHILS ABSOLUTE AUTO 3.0 [facility] Neutrophils/100 WBC (Bld) 52.9 % 43.0 - 75.0 % [facility] Platelet mean volume (Bld) [Entitic vol] 9.8 fL 9.5 - 13.5 fL [facility] E[facility] # [facility].3 [facility]T 264 [facility] RBC 4.71 [facility] WBC 5.6 [facility] PAP ACOG PANEL 2: 30 to 65on 12-10-2021 . . Normal [facility] Comment on above: Result Comment: Perf ormed at: WB Performed By: #### [id number] #### [facility] [address] [address] [address] Doc Mcgrath Age Gdln ACOG Testing 30-65 [facility] Comment on above: Performed By: #### [id number] #### [facility] [address] [place] [address] Dr. Doc Mcgrath DIAGNOSIS: Comment Normal [facility] Comment on above: Result Comment: NEGA TIVE FOR INTRAEPITHELIAL LESION OR MALIGNANCY. CELLULAR CHANGES ASSOCIATED WITH ATROPHY ARE PRESENT. Performed at: WB Performed By: #### [id number] #### [facility] [address] [address] [address] Doc Mcgrath HPV Aptima Negative Normal Negative [facility] Comment on above: Result Comment: This nucleic acid amplification test detects fourteen high-risk HPV types (16,18,31,33,35,39,45,51,52,56,58,59,66,68) without differentiation. Performed at: =G Performed By: #### [id number] #### [facility] [address] [address] [address] Doc Mcgrath Methodology: Comment Normal [facility] Comment on above: Result Comment: This liquid based ThinPrep(R) pap test was screened with the use of an image guided system. Performed at: WB Performed By: #### [id number] #### [facility] [address] [address] [address] Doc Mcgrath Note: Comment Normal [facility] Comment on above: Result Comment: The Pap smear is a screening test designed to aid in the detection of premalignant and malignant conditions of the uterine cervix. It is not a diagnostic procedure and should not be used as the sole means of detecting cervical cancer. Both false-positive and false-negative reports do occur. . Performed at: WB Performed By: #### [id number] #### [facility] [address] [place] [address] Dr. Doc Mcgrath Performed by: Comment Normal [facility] Comment on above: Result Comment: Almita Albert, Geospatial Intelligence Analyst (ASCP) Performed at: WB Performed By: #### [id number] #### [facility] [address] [place] [address] Dr. Doc Mcgrath Specimen adequacy: Comment Normal [facility] Comment on above: Result Comment: Sati sfactory for evaluation. Endocervical and/or squamous metaplastic cells (endocervical component) are present. Performed at: WB Performed By: #### [id number] #### [facility] [address] [place] [address] Dr. Doc Mcgrath CBC AUTO DIFFon 11-06-2021 BASO # 0.1 103/ul Normal 0.0-0.1 [facility] Comment on above: Performed By: #### C BC #### [facility] [address] [place] [address] Dr. Doc Mcgrath Basophils/100 WBC (Bld) 1.0 % Normal 0.2-2.0 [facility] Comment on above: Performed By: #### C BC #### [facility] [address] [place] [address] Dr. Doc Mcgrath EO # 0.2 103/ul Normal 0.0-0.7 [facility] Comment on above: Performed By: #### C BC #### [facility] [address] [place] [address] Dr. Doc Mcgrath Eosinophils/100 WBC (Bld) 4.4 % Normal 0.9-7.0 [facility] Comment on above: Performed By: #### C BC #### [facility] [address] [place] [address] Dr. Doc Mcgrath Erythrocyte distribution width (RBC) [Ratio] 13.1 % Normal 11.0-15.0 [facility] Comment on above: Performed By: #### C BC #### [facility] [address] [place] [address] Dr. Doc Mcgrath Hematocrit (Bld) [Volume fraction] 44.5 % Normal 36.0-48.0 [facility] Comment on above: Performed By: #### C BC #### [facility] [address] [place] [address] Dr. Doc Mcgrath Hemoglobin (Bld) [Mass/Vol] 14.3 g/dL Normal 12.0-16.0 [facility] Comment on above: Performed By: #### C BC #### [facility] [address] [place] [address] Dr. Doc Mcgrath IG # 0.02 10e3/ul Normal 0.00-0.03 [facility] Comment on above: Performed By: #### C BC #### [facility] [address] [place] [address] Dr. Doc Mcgrath IG % 0.4 % Normal 0.0-0.5 [facility] Comment on above: Performed By: #### C BC #### [facility] [address] [place] [address] Dr. Doc Mcgrath LYMPH # 1.6 103/ul Normal 1.2-3.8 [facility] Comment on above: Performed By: #### C BC #### [facility] [address] [place] [address] Dr. Doc Mcgrath Lymphocytes/100 WBC (Bld) 30.5 % Normal 20.5-60.0 [facility] Comment on above: Performed By: #### C BC #### [facility] [address] [place] [address] Dr. Doc Mcgrath MANUAL DIFF REQ NO Normal [facility] Comment on above: Performed By: #### C BC #### [facility] [address] [place] [address] Dr. Doc Mcgrath MCH (RBC) [Entitic mass] 29.8 pg Normal 26.7-34.0 [facility] Comment on above: Performed By: #### C BC #### [facility] [address] [place] [address] Dr. Doc Mcgrath MCHC (RBC) [Mass/Vol] 32.1 g/dL Normal 29.9-35.2 [facility] Comment on above: Performed By: #### C BC #### [facility] [address] [place] [address] Dr. Doc Mcgrath MCV (RBC) [Entitic vol] 92.7 fL Normal 81.0-99.0 [facility] Comment on above: Performed By: #### C BC #### [facility] [address] [place] [address] Dr. Doc Mcgrath MONO # 0.5 103/ul Normal 0.3-0.8 [facility] Comment on above: Performed By: #### C BC #### [facility] [address] [place] [address] Dr. Doc Mcgrath Monocytes/100 WBC (Bld) 8.6 % Normal 1.7-12.0 [facility] Comment on above: Performed By: #### C BC #### [facility] [address] [place] [address] Dr. Doc Mcgrath NEUT # 2.9 103/ul Normal 1.4-6.5 [facility] Comment on above: Performed By: #### C BC #### [facility] [address] [place] [address] Dr. Doc Mcgrath Neutrophils/100 WBC (Bld) 55.1 % Normal 43.0-75.0 [facility] Comment on above: Performed By: #### C BC #### [facility] [address] [place] [address] Dr. Doc Mcgrath Platelet mean volume (Bld) [Entitic vol] 10.1 fL Normal 9.5-13.5 [facility] Comment on above: Performed By: #### C BC #### [facility] [address] [place] [address] Dr. Doc Mcgrath PLT 306 103/ul Normal 150-450 [facility] Comment on above: Performed By: #### C BC #### [facility] [address] [place] [address] Dr. Doc Mcgrath RBC 4.80 106/ul Normal 4.20-5.40 [facility] Comment on above: Performed By: #### C BC #### [facility] [address] [place] [address] Dr. Doc Mcgrath WBC 5.3 103/ul Normal 4.0-11.0 [facility] Comment on above: Performed By: #### C BC #### [facility] [address] [place] [address] Dr. Doc Mcgrath GLYCOHEMOGLOBIN A1Con 2021 ADA RECOMMENDATION SEE BELOW Normal [facility] Comment on above: Result Comment: ADA RECOMMENDED LIMIT 4.0 - 6.0 ADA THERAPEUTIC TARGET < 7.0 ACTION SUGGESTED > 7.0 Performed By: #### A 1C #### [facility] [address] [place] [address] Dr. Doc Mcgrath Glucose [Mass/Vol] 103 mg/dL Normal [facility] Comment on above: Performed By: #### A 1C #### [facility] [address] [place] [address] Dr. Doc Mcgrath HbA1c (Bld) [Mass fraction] 5.2 % Normal 4.5-6.2 [facility] Comment on above: Performed By: #### A 1C #### [facility] [address] [place] [address] Dr. Doc Mcgrath LIPID PROFILEon 11-06-2021 CHOL-HDL RATIO NORM SEE BELOW Normal [facility] Comment on above: Result Comment: 3.3 - 4.4 LOW RISK 4.4 - 7.1 AVERAGE RISK 7.1 - 11.0 MODERATE RISK >11.0 HIGH RISK Performed By: #### T SH, BMP, LIPID, LIVER #### [facility] [address] [place] [address] Dr. Doc Mcgrath Cholesterol [Mass/Vol] 220 mg/dL Critically high <=200 [facility] Comment on above: Performed By: #### T SH, BMP, LIPID, LIVER #### [facility] [address] [address] [address] Doc Mcgrath Cholesterol in HDL [Mass/Vol] 42 mg/dL Normal 40-60 [facility] Comment on above: Performed By: #### T SH, BMP, LIPID, LIVER #### [facility] [address] [address] [address] Doc Mcgrath Cholesterol in LDL [Mass/Vol] 159.2 mg/dL Normal [facility] Comment on above: Performed By: #### T SH, BMP, LIPID, LIVER #### [facility] [address] [address] [address] Doc Mcgrath Cholesterol.total/C holesterol in HDL [Mass ratio] 5.2 {ratio} Normal [facility] Comment on above: Performed By: #### T SH, BMP, LIPID, LIVER #### [facility] [address] [address] [address] Doc Mcgrath HDL NORMAL > or = 60 mg/dl - LO W CARDIOVASCULAR RISK <40 mg/dl - HIGH CARDIOVASCULAR RISK Normal [facility] Comment on above: Performed By: #### T SH, BMP, LIPID, LIVER #### [facility] [address] [address] [address] Doc Mcgrath LDL CALC NORMAL SEE BELOW Normal [facility] Comment on above: Result Comment: <100 mg/dl OPTIMAL 100 - 129 mg/dl NEAR OR ABOVE OPTIMAL 130 - 159 mg/dl BORDERLINE HIGH 160 - 189 mg/dl HIGH >190 mg/dl VERY HIGH Performed By: #### T SH, BMP, LIPID, LIVER #### [facility] [address] [address] [address] Doc Mcgrath Triglyceride [Mass/Vol] 94 mg/dL Normal <=150 [facility] Comment on above: Performed By: #### T SH, BMP, LIPID, LIVER #### [facility] [address] [address] [address] Doc Mcgrath VLDL CALC 18.8 mg/dL Normal [facility] Comment on above: Performed By: #### T SH, BMP, LIPID, LIVER #### [facility] [address] [address] [address] Doc Mcgrath LIVER PROFILEon 11-06-2021 Albumin [Mass/Vol] 4.1 g/dL Normal 3.4-5.0 [facility] Comment on above: Performed By: #### T SH, BMP, LIPID, LIVER #### [facility] [address] [address] [address] Doc Mcgrath Albumin/Globulin [Mass ratio] 1.1 {ratio} Normal [facility] Comment on above: Performed By: #### T SH, BMP, LIPID, LIVER #### [facility] [address] [address] [address] Doc Mcgrath ALP [Catalytic activity/Vol] 83 U/L Normal 46-116 [facility] Comment on above: Performed By: #### T SH, BMP, LIPID, LIVER #### [facility] [address] [place] [address] Dr. Doc Mcgrath ALT [Catalytic activity/Vol] 20 U/L Normal 14-59 [facility] Comment on above: Performed By: #### T SH, BMP, LIPID, LIVER #### [facility] [address] [address] [address] Doc Mcgrath AST [Catalytic activity/Vol] 20 U/L Normal 15-37 [facility] Comment on above: Performed By: #### T SH, BMP, LIPID, LIVER #### [facility] [address] [address] [address] Doc Mcgrath BILI, CONJUGATED 0.2 mg/dL Normal 0.0-0.2 [facility] Comment on above: Performed By: #### T SH, BMP, LIPID, LIVER #### [facility] [address] [address] [address] Doc Mcgrath Bilirubin [Mass/Vol] 1.0 mg/dL Normal 0.2-1.0 [facility] Comment on above: Performed By: #### T SH, BMP, LIPID, LIVER #### [facility] [address] [address] [address] Doc Mcgrath Globulin (S) [Mass/Vol] 3.8 g/dL Normal [facility] Comment on above: Performed By: #### T SH, BMP, LIPID, LIVER #### [facility] [address] [place] [address] Dr. Doc Mcgrath Protein [Mass/Vol] 7.9 g/dL Normal 6.4-8.2 [facility] Comment on above: Performed By: #### T SH, BMP, LIPID, LIVER #### [facility] [address] [place] [address] Dr. Doc Mcgrath PROF CHEM 8 (BAS METB)on Anion gap [Moles/Vol] 10.7 mmol/L Normal [facility] Comment on above: Performed By: #### T SH, BMP, LIPID, LIVER #### [facility] [address] [place] [address] Dr. Doc Mcgrtah Calcium [Mass/Vol] 9.7 mg/dL Normal 8.5-10.1 [facility] Comment on above: Performed By: #### T SH, BMP, LIPID, LIVER #### [facility] [address] [place] [address] Dr. Doc Mcgrath Chloride [Moles/Vol] 103 mmol/L Normal 98-107 [facility] Comment on above: Performed By: #### T SH, BMP, LIPID, LIVER #### [facility] [address] [place] [address] Dr. Doc Mcgrath CO2 [Moles/Vol] 30.8 mmol/L Normal 21.0-32.0 [facility] Comment on above: Performed By: #### T SH, BMP, LIPID, LIVER #### [facility] [address] [place] [address] Dr. Doc Mcgrath Creatinine [Mass/Vol] 0.68 mg/dL Normal 0.55-1.02 [facility] Comment on above: Performed By: #### T SH, BMP, LIPID, LIVER #### [facility] [address] [place] [address] Dr. Doc Mcgrath EGFR-AF GIBRALTARIAN >60 Normal >=60 [facility] Comment on above: Performed By: #### T SH, BMP, LIPID, LIVER #### [facility] [address] [address] [address] Doc Mcgrath EGFR-NON AF GIBRALTARIAN >60 Normal >=60 [facility] Comment on above: Performed By: #### T SH, BMP, LIPID, LIVER #### [facility] [address] [address] [address] Doc Mcgrath Glucose [Mass/Vol] 91 mg/dL Normal 74-106 [facility] Comment on above: Performed By: #### T SH, BMP, LIPID, LIVER #### [facility] [address] [place] [address] Dr. Doc Mcgrath Potassium [Moles/Vol] 4.5 mmol/L Normal 3.5-5.1 [facility] Comment on above: Performed By: #### T SH, BMP, LIPID, LIVER #### [facility] [address] [place] [address] Dr. Doc Mcgrath Sodium [Moles/Vol] 140 mmol/L Normal 136-145 [facility] Comment on above: Performed By: #### T SH, BMP, LIPID, LIVER #### [facility] [address] [place] [address] Dr. Doc Mcgrath Urea nitrogen [Mass/Vol] 19.0 mg/dL Critically high 7.0-18.0 [facility] Comment on above: Performed By: #### T SH, BMP, LIPID, LIVER #### [facility] [address] [place] [address] Dr. Doc Mcgrath Urea nitrogen/Creatinine [Mass ratio] 27.9 mg/mg Normal [facility] Comment on above: Performed By: #### T SH, BMP, LIPID, LIVER #### [facility] [address] [place] [address] Dr. Doc Mcgrath TSHon 11-06-2021 TSH 2.076 uIU/mL Normal 0.358-3.740 [facility] Comment on above: Performed By: #### T SH, BMP, LIPID, LIVER #### [facility] [address] [place] [address] Dr. Doc Mcgrath SARS-CoV-2 (COVID-19) RNA NA A+probe Ql (Resp)on 10-18-2021 SARS-CoV-2 (COVID-19) RNA DON+probe Ql (Unsp spec) Negative [facility] Other KNEE LEFT 1 OR 2 VWSon 04-03 K[facility]EE [facility] [id number] [place] [address] ========Patient Name: RAMA SALDANA : 1960Sex: FAge: Race: WhiteMRN: [id number]. Location: 84Patient Status: Date: 04/03/2017 9:40:00 AMCompleted Date: 04/03/2017 09:43 AMRequesting Provider: DEEPAK VELASCO Attending Provider: Report Copy To: Signs & Symptoms: S82.112D Disp fx of left tibial spine, subs for clos fx w routn heal [id number]: AthenaComments: , , , Ordering Provider - DEEPAK VELASCO PA-C , Exam: KNEE LEFT 1 OR 2 VWSAccession #: [id number] KNEE LEFT 1 OR 2 VWS 04/03/2017 [...] Electronically signed by:Jose E Leung. Transcribed by: [id number], User Resident: Electronically Signed by: JOSE E LEUNG @ 04/03/2017 12:13 PM Normal [facility] Comment on above: Order Comment: , , = ========= , Ordering Provider - DEEPAK VELASCO PA-C , KNEE LEFT 1 OR 2 Son 09-25 KNEE LEFT 1 OR 2 [facility] [id number] [place] [address] ========Patient Name: RAMA SALDANA : 1960Sex: FAge: Race: WhiteMRN: [id number]. Location: 84Patient Status: Date: 09/25/2016 1:30:00 PMCompleted Date: 09/25/2016 01:37 PMRequesting Provider: DEEPAK VELASCO Attending Provider: Report Copy To: Signs & Symptoms: S82.112D Disp fx of left tibial spine, subs for clos fx w routn heal [id number]: AthenaComments: , , , Ordering Provider - DEEPAK VELASCO PA-C , Exam: KNEE LEFT 1 OR 2 VWSAccession #: [id number] KNEE LEFT 1 OR 2 VWS 09/25/2016 [...] to be near complete. Electronically signed by:Trace Weiss. Transcribed by: [email or web address], User Resident: Electronically Signed by: TRACE WEISS @ 09/25/2016 04:21 PM Normal [facility] Comment on above: Order Comment: , , = ========= , Ordering Provider - DEEPAK VELASCO PA-C , KNEE LEFT 1 OR 2 [facility] 08-13 KNEE LEFT 1 OR 2 [facility] [address] [place] [address] ========Patient Name: RAMA SALDANA : 1960Sex: FAge: Race: WhiteMRN: [id number]. Location: 84Patient Status: Date: 08/13/2016 1:35:00 PMCompleted Date: 08/13/2016 01:37 PMRequesting Provider: DEEPAK VELASCO Attending Provider: Report Copy To: Signs & Symptoms: S82.112D Disp fx of left tibial spine, subs for clos fx w routn heal [id number]: AthenaComments: , , , Ordering Provider - DEEPAK VELASCO PA-C , Exam: KNEE LEFT 1 OR 2 VWSAccession #: [id number] KNEE LEFT 1 OR 2 VWS 08/13/2016 [...] at the left knee joint. Approved by:Bryant Carroll on 08/13/2016 3:51 PM EDT. IJanis, have reviewed the images and report and concur with these findings. Electronically signed by:Janis Rendon. Transcribed by: [email or web address], User Resident: BRYANT CARROLLElectronically Signed by: JANIS RENDON @ 08/13/2016 06:32 PMI personally read this/these film(s) with this resident Normal [facility] Comment on above: Order Comment: , , = ========= , Ordering Provider - DEEPAK VELASCO PA-C , Vital Signs Date Time Vital Sign Value Performing Clinician Facility 10-21-2024 09:31-0400 Body height 160.02 cm Davonte Willis MD Work Phone: [facility] 10-21-2024 09:31-0400 Body mass index (BMI) [Ratio] 25.7 kg/m2 Davonte Willis MD Work Phone: [facility] 10-21-2024 09:31-0400 Body temperature 97.5 [degF] Davonte Willis MD Work Phone: [facility] 10-21-2024 09:31-0400 Body weight 65.94 kg Davonte Willis MD Work Phone: [facility] 10-21-2024 09:31-0400 Diastolic blood pressure 86 mm[Hg] Davonte Willis MD Work Phone: [facility] 10-21-2024 09:31-0400 Heart rate 83 /min Davonte Willis MD Work Phone: [facility] 10-21-2024 09:31-0400 Respiratory rate 20 /min Davonte Willis MD Work Phone: [facility] 10-21-2024 09:31-0400 SaO2% (BldA) [Mass fraction] 97 % Davonte Willis MD Work Phone: [facility] 10-21-2024 09:31-0400 Systolic blood pressure 140 mm[Hg] Davonte Willis MD Work Phone: [facility] 02-29-2024 10:24-0500 Body height 160 cm Davonte Willis MD Work Phone: [facility] 02-29-2024 10:24-0500 Body mass index (BMI) [Ratio] 26.57 kg/m2 Davonte Willis MD Work Phone: [facility] 02-29-2024 10:24-0500 Body temperature 97.11 [degF] Davonte Willis MD Work Phone: [facility] 02-29-2024 10:24-0500 Body weight 68.04 kg Davonte Willis MD Work Phone: [facility] 02-29-2024 10:24-0500 Diastolic blood pressure 66 mm[Hg] Davonte Willis MD Work Phone: [facility] 02-29-2024 10:24-0500 Heart rate 83 /min Davonte Willis MD Work Phone: [facility] 02-29-2024 10:24-0500 Respiratory rate 22 /min Davonte Willis MD Work Phone: [facility] 02-29-2024 10:24-0500 SaO2% (BldA) [Mass fraction] 97 % Davonte Willis MD Work Phone: [facility] 02-29-2024 10:24-0500 Systolic blood pressure 128 mm[Hg] Davonte Willis MD Work Phone: [facility] 10-08-2023 10:01-0400 Body height 160 cm Davonte Willis MD Work Phone: [facility] 10-08-2023 10:-0400 Body mass index (BMI) [Ratio] 25.15 kg/m2 Davonte Willis MD Work Phone: [facility] 10-08-2023 10:01-0400 Body temperature 95.31 [degF] Davonte Willis MD Work Phone: [facility] 10-08-2023 10:01-0400 Body weight 64.41 kg Davonte Willis MD Work Phone: [facility] 10-08-2023 10:01-0400 Diastolic blood pressure 76 mm[Hg] Davonte Willis MD Work Phone: [facility] 10-08-2023 10:01-0400 Heart rate 87 /min Davonte Willis MD Work Phone: [facility] 10-08-2023 10:01-0400 Respiratory rate 22 /min Davonte Willis MD Work Phone: [facility] 10-08-2023 10:01-0400 SaO2% (BldA) [Mass fraction] 97 % Davonte Willis MD Work Phone: [facility] 10-08-2023 10:01-0400 Systolic blood pressure 144 mm[Hg] Davonte Willis MD Work Phone: [facility] 10-18-2021 11:05-0400 Body height 160.02 cm Radha Galdamez Other [facility] Other 10-18-2021 11:05-0400 Body mass index (BMI) [Ratio] 26.21 kg/m2 Radha Galdamez Other [facility] Other 10-18-2021 11:05-0400 Body temperature 97.3 [degF] Radha Galdamez Other [facility] Other 10-18-2021 11:05-0400 Body weight 67.13 kg Radha Galdamez Other [facility] Other 10-18-2021 11:05-0400 Respiratory rate 18 /min Radha Galdamez Other [facility] Other 10-18-2021 11:05-0400 SaO2% (BldA) [Mass fraction] 98 % Radha Galdamez Other [facility] [employer] Other Encounters Encounter Date Encounter Type Care Provider Facility Start: 10-21-2024 End: 10-21-2024 ambulatory Davonte Willis MD Work Phone: [facility] Work Phone: Start: 10-21-2024 End: 10-21-2024 Patient encounter procedure Davonte Willis MD -[facility] Work Phone: Start: 02-29-2024 End: 02-29-2024 Bamboo flowsheet Davonte Willis MD Work Phone: [facility] Start: 02-29-2024 End: 02-29-2024 Bamboo flowsheet Davonte Willis MD Work Phone: [facility] Start: 02-29-2024 End: 02-29-2024 Office outpatient visit 15 minutes Davonte Willis MD Work Phone: [facility] Comment on above: Chronic bilateral lo w back pain with right-sided sciatica (Primary Dx); Chronic pain of right knee Start: 02-29-2024 End: 02-29-2024 ambulatory DAVONTE WILLIS Not Available Start: 10-14-2023 End: 10-14-2023 Clinisync Result Encounter Davonte Willis MD Work Phone: [facility]solic[facility] Start: 10-14-2023 End: 10-14-2023 Clinisync Result Encounter Davonte Willis MD Work Phone: [facility] Start: 10-08-2023 End: 10-08-2023 Bamboo flowsheet Davonte Willis MD Work Phone: [facility] Start: 10-08-2023 End: 10-08-2023 Bamboo flowsheet Davonte Willis MD Work Phone: [facility] Start: 10-08-2023 End: 10-08-2023 Patient encounter procedure Davonte iWllis MD Work Phone: [facility] Work Phone: Start: 10-08-2023 End: 10-08-2023 Postop follow up visit related to original px Davonte Willis MD Work Phone: [facility] Comment on above: Medicare annual well ness visit, subsequent (Primary Dx); Encounter for long-term (current) use of medications; Lipid screening; Breast cancer screening by mammogram; Colon cancer screening Start: 10-08-2023 End: 10-08-2023 ambulatory DAVONTE WILLIS Not Available Start: 12-03-2021 End: 12-03-[address] DAVONTE WILLIS Facility:[facility] Start: 11-07-2021 Encounter for genera l adult medical examination without abnormal findings DR DAVONTE WILLIS [facility] Start: 11-06-2021 End: 11-07-[address] DAVONTE WILLIS Facility:[facility] Start: 11-06-2021 End: 11-07-2021 Encounter for general adult medical examination without abnormal findings DR DAVONTE WILLIS Facility:[facility] Start: 10-18-2021 End: 10-18-2021 ambulatory Radha Galdamez Other [facility] Other Start: 10-18-2021 Office outpatient vi sit 25 minutes Radha Galdamez [facility] Start: 04-03-2017 End: 04-04-2017 Ambulatory REFERRED SELF Facility:[facility] Start: 09-25-2016 End: 09-26-2016 Ambulatory DEEPAK KRISTA Facility:[facility] Start: 08-13-2016 End: 08-14-2016 Ambulatory DEEPAK VELASCO Facility:[facility] Procedures Date Procedure Procedure Detail Performing Clinician Start: 10-14-2023 ALL CBC WITH AUTO DIFF Davonte Willis MD Work Phone: Start: 10-14-2023 Mammography Davonte shirley MD Work Phone: Start: 10-10-2016 Mammography Davonte shirley MD Work Phone: Plan of Treatment Date Care Activity Detail Author Start: 01-03-2027 Screening for malign ant neoplasm of colon [facility] Start: 10-13-2024 Screening for malign ant neoplasm of breast Mammogram [facility] Start: 10-13-2024 End: 10-13-2024 Patient encounter procedure 10/13/2024 9:00 AM EDT Office Visit [facility] [address] [place] [address] Davonte Willis MD [address] [place] [id number] [facility] Start: 02-29-2024 End: 02-28-2025 XR Knee - right 1 or 2 Views XR knee 1 or 2 views right Imaging Routine Chronic pain of right knee Expected: 02/29/2024, Expires: 02/28/2025 [facility] Comment on above: Expected: 02/29/2024 , Expires: 02/28/2025 Start: 02-29-2024 End: 02-28-2025 XR Lumbar spine 2 or 3 Views XR lumbar spine 2 or 3 views Imaging Routine Chronic bilateral low back pain with right-sided sciatica Expected: 02/29/2024, Expires: 02/28/2025 [facility] Work Phone: Comment on above: Expected: 02/29/2024 , Expires: 02/28/2025 Start: 02-29-2024 End: 02-29-2024 Patient encounter procedure 02/29/2024 10:15 AM EST Office Visit [facility] [address] [place] [address] Davonte Willis MD [address] [place] [phone] Arrived [facility] Comment on above: Arrived Start: 12-25-2023 Screening for malign ant neoplasm of colon [facility] Start: 12-21-2023 End: 10-07-2024 Noninvasive colorectal cancer DNA and occult blood screening [Presence] in Stool Cologuard colon cancer screening Lab Routine Colon cancer screening Expected: 12/21/2023 (Approximate), Expires: 10/07/2024 [facility] Work Phone: Comment on above: Expected: 12/21/2023 (Approximate), Expires: 10/07/2024 Start: 10-18-2023 Influenza vaccination Influenza Vacc ine (#1) [facility] Start: 10-08-2023 End: 10-07-2024 Basic metabolic 1998 panel - Serum or Plasma Basic metabolic panel Lab Routine Encounter for long-term (current) use of medications Expected: 10/08/2023 (Approximate), Expires: 10/07/2024 [facility] Comment on above: Expected: 10/08/2023 (Approximate), Expires: 10/07/2024 Start: 10-08-2023 End: 10-07-2024 CBC W Auto Differential panel - Blood CBC and differential Lab Routine Encounter for long-term (current) use of medications Expected: 10/08/2023 (Approximate), Expires: 10/07/2024 [facility] Comment on above: Expected: 10/08/2023 (Approximate), Expires: 10/07/2024 Start: 10-08-2023 End: 10-07-2024 Hepatic function 2000 panel - Serum or Plasma Hepatic function panel Lab Routine Encounter for long-term (current) use of medications Expected: 10/08/2023 (Approximate), Expires: 10/07/2024 [facility] Comment on above: Expected: 10/08/2023 (Approximate), Expires: 10/07/2024 Start: 10-08-2023 End: 10-07-2024 Lipid 1996 panel - Serum or Plasma Lipid panel Lab Routine Lipid screening Expected: 10/08/2023 (Approximate), Expires: 10/07/2024 [facility] Comment on above: Expected: 10/08/2023 (Approximate), Expires: 10/07/2024 Start: 10-08-2023 End: 12-07-2024 MG Breast - bilateral Screening Bilateral screening mammogram Imaging Routine Breast cancer screening by mammogram Expected: 10/08/2023, Expires: 12/07/2024 [facility] Comment on above: Expected: 10/08/2023 , Expires: 12/07/2024 Start: 10-08-2023 End: 10-08-2023 Patient encounter procedure 10/08/2023 10:00 AM EDT Office Visit [facility] [address] [place] [phone] Davonte Willis MD [address] [place] [phone] Arrived [facility] Comment on above: Arrived Start: 2023 Pneumococcal Vaccine : 65+ Years (1 of 1 - PCV) Pneumococcal Vaccine: 65+ Years (1 of 1 - PCV) [facility] Start: 10-10-2017 Screening for malign ant neoplasm of breast Mammogram [facility] Start: 1998 Screening for malign ant neoplasm of breast Mammogram [facility] Start: 02-06-1988 Screening for malign ant neoplasm of cervix [facility] Start: 1979 Screening for malign ant neoplasm of cervix Pap Smear [facility] Start: 1960 Screening for malign ant neoplasm of colon [facility] metabo lic 2000 panel - Serum or Plasma [facility] MG Breast - bilatera l Screening [facility] Immunizations Immunization Date Immunization Notes Care Provider Fa cility 01-05-2020 influenza virus vacc ine, unspecified formulation Davonte Willis MD Work Phone: [facility] Payers Date Payer Category Payer Private Health Insurance [employer] [place] [id number] 2023 Unknown AARP AARP [id number] 2023-Present [address] [place] [address] [id number] 2023 Unknown [id number] 2023 Medicare [id number] 2023 Medicare [id number] 1961 Unknown [id number] 1960 Unknown [id number] 1960 Unknown [id number] 1960 Unknown [id number] 1960 Unknown [id number] Medicare Medicare [id number] Worker's Compensation [id number] Social History Date Type Detail Facility Start: 10-08-2023 End: 02-29-2024 Sex Assigned At [facility] Start: 10-08-2023 End: 10-21-2024 Tobacco smoking status MAIS Never smoked tobacco [facility] Start: 10-08-2023 Tobacco use and exposure Smokeless tobacco non-user [facility] Start: 10-08-2023 End: 02-29-2024 History of Social function [facility] Start: 1960 Sex assigned at Not on file [facility] Tobacco smoking status MAIS Tobacco smoking consumption unknown [facility] Sex Female (finding) [facility] Start: 1960 Sex Assigned At Female F [facility] History of Present illness Narrative 02-29-2024 Davonte Willis MD - 02/29/2024 10:49 AM Juan Willis MD - 02/29/2024 10:49 AM Juan Willis MD - 02/29/2024 10:15 AM EST Note Date & Type Note Facility 02-29-2024 History of Presen t illness Narrative Associated Problem(s): Chronic pain of right knee Pain for months and likely arthritis changes. Check x-ray and start mobic. Ice PRN. If no improvement or worsens will need PT. Associated Problem(s): Chronic bilateral low back pain with right-sided sciatica Pain for months and likely arthritis changes. Check x-ray and start mobic. Ice PRN. If no improvement or worsens will need PT. Images from the original note were not included. Subjective Patient ID: Rama Saldana is a 64 y.o. female who presents for Leg Pain (Pain behind right knee/Upper leg pain). C/o low back and leg pain for over a year. Pain in bilateral legs and occasional spasms in legs. Pain in knees and pain behind knees. Pain in back right leg and calf. Occasionally will wake up with spasms in legs. Pain worse with walking and standing. If sit prolonged will have pain and stiffness in knees. Pain behind knees with sitting. Hard to get up from sitting. Pain in low back and across top hips. Pain into right leg and back leg. Numbness in leg and foot. If walk a lot increased pain and numbness. Using OTC aleve and tylenol and mild relief. Pain not limiting activity but at times severe in evening. Review of Systems Respiratory: Negative for cough, shortness of breath and wheezing. Cardiovascular: Negative for chest pain and palpitations. Gastrointestinal: Negative for abdominal pain, diarrhea, nausea and vomiting. Genitourinary: Negative for dysuria. Objective Physical Exam Constitutional: General: She is not in acute distress. Appearance: Normal appearance. HENT: Head: Normocephalic. Right Ear: Tympanic membrane normal. Left Ear: Tympanic membrane normal. Eyes: Extraocular Movements: Extraocular movements intact. Pupils: Pupils are equal, round, and reactive to light. Cardiovascular: Rate and Rhythm: Normal rate and regular rhythm. Heart sounds: No murmur heard. No friction rub. No gallop. Pulmonary: Effort: Pulmonary effort is normal. Breath sounds: Normal breath sounds. No wheezing, rhonchi or rales. Abdominal: General: Bowel sounds are normal. There is no distension. Palpations: Abdomen is soft. Tenderness: There is no abdominal tenderness. There is no guarding or rebound. Musculoskeletal: Cervical back: Neck supple. Right lower leg: No edema. Left lower leg: No edema. Neurological: Mental Status: She is alert. Assessment/Plan Problem List Items Addressed This Visit Chronic pain of right knee Pain for months and likely arthritis changes. Check x-ray and start mobic. Ice PRN. If no improvement or worsens will need PT. Relevant Orders XR knee 1 or 2 views right Chronic bilateral low back pain with right-sided sciatica - Primary Pain for months and likely arthritis changes. Check x-ray and start mobic. Ice PRN. If no improvement or worsens will need PT. Relevant Medications Meloxicam 15 MG tablet dispersible Other Relevant Orders XR lumbar spine 2 or 3 views documented in this encounter [facility] History of Present illness Narrative 10-08-2023 Davonte Willis MD - 10/08/2023 10:38 AM EDTMbryan Willis MD - 10/08/2023 10:00 AM EDT Note Date & Type Note Facility 10-08-2023 History of Presen t illness Narrative Associated Problem(s): Medicare annual wellness visit, subsequent Due for labs. Discussed proper diet and regular aerobic exercise. Need aerobic exercise 5-6 days a week for 30 minutes at a time. Smaller portions and limit total calories. Cologuard due in December and will order. Tetanus every 10 years. Advised not to smoke. Discussed daily Aspirin therapy. Images from the original note were not included. Subjective Patient ID: Rama Saldana is a 63 y.o. female who presents for Medicare Annual Wellness Visit Initial (wellness). Presents for medicare wellness visit. Patient feels well today. Weight down 11 pounds in past 2 years. Tries to stay active and walk several days a week. Tries to watch diet and eat healthy. Increased fruits and vegetables. Smaller portions and limits snacking. Tries to limit total daily calories. Due for labs. Review of Systems Respiratory: Negative for cough, shortness of breath and wheezing. Cardiovascular: Negative for chest pain and palpitations. Gastrointestinal: Negative for abdominal pain, diarrhea, nausea and vomiting. Genitourinary: Negative for dysuria. Objective Physical Exam Constitutional: General: She is not in acute distress. Appearance: Normal appearance. HENT: Head: Normocephalic. Right Ear: Tympanic membrane normal. Left Ear: Tympanic membrane normal. Eyes: Extraocular Movements: Extraocular movements intact. Pupils: Pupils are equal, round, and reactive to light. Cardiovascular: Rate and Rhythm: Normal rate and regular rhythm. Heart sounds: No murmur heard. No friction rub. No gallop. Pulmonary: Effort: Pulmonary effort is normal. Breath sounds: Normal breath sounds. No wheezing, rhonchi or rales. Abdominal: General: Bowel sounds are normal. There is no distension. Palpations: Abdomen is soft. Tenderness: There is no abdominal tenderness. There is no guarding or rebound. Musculoskeletal: General: No swelling or tenderness. Cervical back: Neck supple. Right lower leg: No edema. Left lower leg: No edema. Skin: Findings: No erythema or rash. Neurological: General: No focal deficit present. Mental Status: She is alert and oriented to person, place, and time. Cranial Nerves: No cranial nerve deficit. Motor: No weakness. Gait: Gait normal. Assessment/Plan Problem List Items Addressed This Visit Medicare annual wellness visit, subsequent - Primary Due for labs. Discussed proper diet and regular aerobic exercise. Need aerobic exercise 5-6 days a week for 30 minutes at a time. Smaller portions and limit total calories. Cologuard due in December and will order. Tetanus every 10 years. Advised not to smoke. Discussed daily Aspirin therapy. Lipid screening Relevant Orders Lipid panel Encounter for long-term (current) use of medications Relevant Orders Basic metabolic panel CBC and differential Hepatic function panel Other Visit Diagnoses Breast cancer screening by mammogram Relevant Orders Bilateral screening mammogram Colon cancer screening Relevant Orders Cologuard colon cancer screening documented in this encounter [facility] Evaluation note 10-18-2021 Note Date & Type [...] with PCP if febrile or new/worsening s/s. [facility] Other Evaluation note Note Date & Type Note Facility Evaluation note Diagnosis Medicare annual wellness visit, subsequent- Primary Encounter for long-term (current) use of medications Encounter for long-term (current) use of other medications Lipid screening Screening for lipoid disorders Breast cancer screening by mammogram Colon cancer screening Special screening for malignant neoplasms, colon documented in this encounter [facility] Evaluation note Note Date & Type Note Facility Evaluation note Diagnosis Medicare annual wellness visit, subsequent- Primary Encounter for long-term (current) use of medications Encounter for long-term (current) use of other medications Lipid screening Screening for lipoid disorders Breast cancer screening by mammogram Colon cancer screening Special screening for malignant neoplasms, colon Chronic bilateral low back pain with right-sided sciatica- Primary Chronic pain of right knee documented in this encounter [facility] Evaluation note Note Date & Type Note Facility Evaluation note Diagnosis Onset Date Resolution Dyslipidemia acute October 9:16am Encounter for long-term (current) use of medications acute October 21 9:16am Medicare annual wellness visit, subsequent acute October 21 9:16am [facility] Work Phone: History general Narrative - Reported Note Date & Type Note Facility History general Narrative - Reported Type Medical History glaucoma [facility] Other Reason for referral (narrative) Note Date & Type Note Facility Reason for referral (narrative) No reason for referral information available [facility] Work Phone: Summary Purpose Family History Relationship Condition Age at Onset Recorded Date/T gt father Unknown mother Unknown Advance Directives Advance Directive Response Recorded Date/ Time Advance Directives No October 9:13am Chief Complaint and Reason for Visit Reason for Visit Admit Date Dyslipidemia October 21, 2024 9:16am Encounter for long-term (current) use of medications October 21, 2024 9:16am Medicare annual wellness visit, subseque nt October 21, 2024 9:16am Additional Source Comments INFORMATION SOURCE (unrecogn ized section and content) DATE CREATED AUTHOR 08/06/2017 [facility] DATE CREATED AUTHOR AUTHOR'S ORGANIZ ATION 12/11/2021 [facility] DATE CREATED AUTHOR AUTHOR'S ORGANIZ ATION 03/03/2024 [facility] EPIC REASON FOR VISIT (unrecogniz ed section and content) Reason Comments Medicare Annual Wellness Visit Initial w ellness Reason Comments Leg Pain Pain behind right kn eeUpper leg pain Care Teams (unrecognized sec tion and content) Warehouse Assistant Relationship Specialty Start Date End Date Davonte Willis MD [address] [place] [address] PCP - General Family Medicine 10/08/23 Warehouse Assistant Relationship Specialty Start Date End Date Davonte Willis MD [address] [place] [phone] PCP - [facility] 10/08/23 Warehouse Assistant Relationship Specialty Start Date End Date Davonte Willis MD [address] [place] [phone] PCP - [facility] 10/08/23 Warehouse Assistant Relationship Specialty Start Date End Date Davonte Willis MD [address] [place] [address] [facility] - [facility] 10/08/23 Warehouse Assistant Relationship Specialty Start Date End Date Davonte Willis MD [address] [place] [address] PCP [facility] 10/08/23 Team Status: Active Member Role Status Dates Davonte Willis MD Primary Care Provider Active Team Status: Inactive Member Role Status Dates Davonte Willis MD Primary Care Provider Active S tart: October 21, 2024 End: October 21, 2024 Davonte Willis MD Attending Provider Active Star t: October 21, 2024 End: October 21, 2024 Goals (unrecognized section and content) Goals may be documented in a n alternate section FOR RECORDS PERTAINING TO PATIENTS WHO ARE [...] BE BASED ON THE PRIMARY CLINICAL RECORDS. [facility]. provides no warranty or guarantee of the accuracy or completeness of information in this document.
--- NOTE | 2024-10-27 08:49 | MM_ITS ---
Patient Name: RAMA SALDANA MR#: [id number] : 1960 Exam Date: 10/27/2024 Ordering Doctor: DR JUSTIN WILLIS . RADIOLOGY REPORT PROCEDURE: MM TOMOSYNTHESIS SCREENING BI COMPARISON: MM TOMOSYNTHESIS SCREENING BI, 10/14/2023. MG MAMM SCREEN 3D SOPHIA CAD, 12/10/2020. MG MAMM SOPHIA SCRN W CAD DIG, 10/10/2016. MG MAMM SOPHIA SCRN W CAD DIG, 10/09/2015. INDICATIONS: Screening Calculator Name NCI Breast Cancer Risk Assessment Tool 5 Year Breast Cancer Risk 1.90% Lifetime Breast Cancer Risk 6.70% Personal Breast Cancer No Personal Ovarian Cancer No Treatments None Family Cancers Mother with ovarian cancer at age ~52; Father with lung cancer at age ~55. LOCATION: [facility] BREAST COMPOSITION: There are scattered areas of fibroglandular density. FINDINGS: DIAGNOSTIC CATEGORY 1--NEGATIVE. RIGHT BREAST: No significant suspicious finding. LEFT BREAST: No significant suspicious finding. RECOMMENDATIONS: ROUTINE MAMMOGRAM AND CLINICAL EVALUATION IN 12 MONTHS. Dictated by: Ethan Pabon DO on 10/27/2024 at 15:20 Approved by: Ethan Pabon DO on 10/27/2024 at 15:22
[2024-10-27 09:16] LABS: Hematocrit 42.1 % (36.0-48.0); Hemoglobin 14.3 g/dL (12.0-16.0); Immature Granulocytes Abs Auto 0.01 10^3/uL (0.00-0.03); Immature Granulocytes Pct Auto 0.2 % (0.0-0.5); Lymphocytes Absolute Auto 1.8 10^3/uL (1.2-3.8); Mean Corpuscular HGB Conc 34.0 g/dL (29.9-35.2); Mean Corpuscular Hemoglobin 31.3 pg (26.7-34.0); Mean Corpuscular Volume 92.1 fL (81.0-99.0); Platelet Count 257 10^3/uL (150-450); Red Blood Count 4.57 10^6/uL (4.20-5.40); White Blood Count 5.7 10^3/uL (4.0-11.0)
[2024-10-27 09:21] LABS: Alanine Aminotransferase 18 U/L (14-59); Albumin Globulin Ratio 1.0; Albumin Level 4.1 g/dL (3.4-5.0); Alkaline Phosphatase 75 U/L (46-116); Anion Gap 11.0; Aspartate Amino Transferase 21 U/L (15-37); Blood Urea Nitrogen 18.0 mg/dL (7.0-18.0); Calcium 9.2 mg/dL (8.5-10.1); Carbon Dioxide 29.3 mmol/L (21.0-32.0); Chloride 105 mmol/L (98-107); Cholesterol 198 mg/dL (<=200); Estimated GFR (African America >60 (>=60 mL/min/1.73m^2); Estimated GFR (Non-African Ame >60 (>=60 mL/min/1.73m^2); Globulin 4.0 g/dL; Glucose 86 mg/dL (74-106); HDL Cholesterol 43 mg/dL (40-60); Potassium 4.3 mmol/L (3.5-5.1); Sodium 141 mmol/L (136-145); TSH W/ REFLEX FT4 1.814 uIU/mL (0.358-3.740); Total Protein 8.1 g/dL (6.4-8.2); Triglycerides 108 mg/dL (<=150); VLDL CHOLESTEROL 21.6 mg/dL
== END 2024-10-27 08:32 | disposition home or self-care (01) ==
LOC: MAMMO 08:33
PROVIDERS: PCP Family Medicine; Visit Provider Family Medicine
DX: Z79.899 Other long term (current) drug therapy (principal); E78.5 Hyperlipidemia, unspecified; R53.83 Other fatigue; Z12.31 Encounter for screening mammogram for malignant neoplasm of breast; Z80.1 Family history of malignant neoplasm of trachea, bronchus and lung; Z80.41 Family history of malignant neoplasm of ovary
CPT/HCPCS: 36415; 77063; 77067; 80053; 80061; 84443; 85025